=== PATIENT | female | born 2005 | race Caucasian/White ===

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

== ENCOUNTER 2023-04-15 15:16 | Emergency (ER) | payer OTHER, SELFPAY ==
[2023-04-15 15:27] VITALS: BP 156/94; PULSE 91; RESP 18; TEMP 36.6; O2SAT 97; BMI 29.7
[2023-04-15 15:31] VITALS: BP 141/62; PULSE 66; RESP 20; O2SAT 96
--- NOTE | 2023-04-15 15:34 | HMH.EDGENADL ---
Discharge Plan Disposition Patient Disposition: Home, Self-Care Condition: Fair Prescriptions Prescriptions: No Action ibuprofen [ibuprofen] 600 mg tablet 600 mg PO Q6HP PRN (Reason: Mild Pain) Qty: 30 0RF Referrals Follow up/Referrals: Radha Sampson DO [Staff Physician] - 3 days Ac Kenyon MD [Primary Care Provider] - See instructions Clinical Impressions Clinical Impression: Vaginal bleeding, Dysfunctional uterine bleeding Instructions Patient Instructions: DI for Vaginal Bleeding Discharge ED Provider: Faisal Sharma Adult HPI General Chief complaint: Vaginal Bleeding Stated complaint: stomach pain, cramps Time Seen by Provider: 04/15/23 15:34 Mode of Arrival: Ambulatory Source of Information: Patient Limitations: No Limitations Description of Symptoms (Recalled from ER Triage Doc. by RN): Patient reports heavy bleeding with clots and cramping that started around 1300 today. History of Present Illness HPI narrative: The patient presents the emergency department with heavy vaginal bleeding today. Patient reports that she is having profuse bleeding MD complaint: Vaginal bleeding Severity: moderate Quality: burning Relieving factors: none Exacerbating factors: none Related Data Previous Rx's Medication Instructions Recorded ibuprofen 600 mg tablet 600 mg PO Q6HP PRN Mild Pain #30 06/13/22 tabs Allergies Allergy/AdvReac Type Severity Reaction Status Date / Time Penicillins [PENICILLINS] Allergy Unknown Verified 06/13/22 13:42 [facility] Disclaimer: The information contained in this section may have been updated after the patient was seen, as this information can be updated by other users. Social History Smoking Status: Never smoker alcohol intake: never current occupational status: student Travel in the last 8 weeks: None housing: house ROS Obtained: Yes Systems reviewed as appropriate & no additional complaints except as documented Genitourinary Female Genitourinary: Reports abnormal vaginal bleeding and Reports pelvic pain Physical Exam General General appearance: alert and in no apparent distress Eye Eye exam: Present normal appearance and EOMI ENT ENT exam: Present normal exam Respiratory Respiratory exam: Present normal lung sounds bilaterally Cardiovascular Cardiovascular exam: Present regular rate and normal rhythm Abdominal Exam Abdominal exam: Present soft Abdominal tenderness: Present suprapubic Extremities Exam Extremities exam: Present normal inspection and full ROM Neurological Exam Neurological exam: Present alert, CN II-XII intact and motor sensory deficit Psychiatric Psychiatric exam: Present normal affect and normal mood Skin Skin exam: Present warm, dry and intact Medical Decision Making Bam Inquiry Pt receiving controlled substance: No Vital Signs: 04/15/23 15:27 04/15/23 15:31 04/15/23 16:52 Temperature 97.8 F Temperature Source Oral Pulse Rate 66 58 L Pulse Rate [Right Brachial] 91 H Respiratory Rate 18 20 18 Blood Pressure 141/62 H 111/66 Blood Pressure [Right Arm] 156/94 H Blood Pressure Mean 88 77 Blood Pressure Mean [Right Arm] 114 Blood Pressure Source Blood Pressure Source [Right Arm] Automatic Cuff Blood Pressure Position Blood Pressure Position [Right Arm] Sitting 02 Sat by Pulse Oximetry 97 96 97 Oxygen Delivery Method Room Air 04/15/23 17:14 Temperature 97.8 F Temperature Source Pulse Rate 63 Pulse Rate [Right Brachial] Respiratory Rate 18 Blood Pressure 112/60 Blood Pressure [Right Arm] Blood Pressure Mean Blood Pressure Mean [Right Arm] Blood Pressure Source Automatic Cuff Blood Pressure Source [Right Arm] Blood Pressure Position Sitting Blood Pressure Position [Right Arm] 02 Sat by Pulse Oximetry Oxygen Delivery Method Room Air Lab Data Lab results reviewed: Yes I reviewed the patient's lab r
[2023-04-15 16:15] LABS: Basophils % 0.3 % (0.1-2.0); Eosinophils # 0.1 K/mm3 (0.0-0.4); Eosinophils % 1.1 % (0.1-12.0); Hematocrit 39.7 % (37.0-47.0); Hemoglobin 12.8 g/dL (12.2-16.2); Lymphocytes # 1.4 K/mm3 (0.7-4.5); Lymphocytes % 13.4 % (10-50); Mean Corpuscular HGB Conc 32.1 g/dL (31.8-35.4); Mean Platelet Volume 9.4 fl (7.4-10.4); Monocytes # 0.4 K/mm3 (0.1-1.0); Monocytes % 3.7 % (1.7-9.3); Neutrophils # 8.3 K/mm3 (1.8-7.8); Neutrophils % 81.5 % (37.0-80.0); Platelet Count 224 K/mm3 (142-424); Red Blood Count 4.56 M/mm3 (4.20-5.40); Red Cell Distribution Width 13.1 % (11.5-17.5); White Blood Count 10.2 K/mm3 (4.5-13.0)
[2023-04-15 16:24] LABS: Anion Gap 9.9 mEq/L (5-15); Blood Urea Nitrogen 10 mg/dl (7-17); Calcium 8.7 mg/dl (8.4-10.2); Carbon Dioxide 27 mmol/L (22.0-30.0); Chloride 107 mmol/L (98-107); Creatinine Clearance Estimated 156 mL/min (50-200); Estimated Glomerular Filt Rate 108 ml/min (>60); GFR (African American) 130 ML/MIN (>60); Glucose 93 mg/dl (74-100); Potassium 3.9 mmoL/L (3.5-5.1); Sodium 140 mmol/L (136-145)
[2023-04-15 16:29] LABS: HCG Qualitative, Serum Negative (Negative)
[2023-04-15 16:52] VITALS: BP 111/66; PULSE 58; RESP 18; O2SAT 97
--- NOTE | 2023-04-15 17:05 | PC.NURSE ---
CHECKED ON PT SHE RECIVED A WATER, MOM AT BS
[2023-04-15 17:14] VITALS: BP 112/60; PULSE 63; RESP 18; TEMP 36.6; O2SAT 100
== END 2023-04-15 17:17 | disposition home or self-care (01) ==
PROVIDERS: Emergency Provider Emergency Medicine; PCP Family Medicine
DX: N93.9 Abnormal uterine and vaginal bleeding, unspecified (principal); R10.9 Unspecified abdominal pain
CPT/HCPCS: 80048; 84703; 85025; 96374; 96375; 99284; J2405

== ENCOUNTER 2023-06-30 13:12 | Emergency (ER) | payer OTHER, SELFPAY ==
[2023-06-30 13:13] VITALS: BP 105/62; PULSE 65; RESP 16; TEMP 36.9; O2SAT 100; BMI 29.2
--- NOTE | 2023-06-30 13:55 | PC.NURSE ---
Dr. Garcia at [facility] for pt eval
[2023-06-30 14:00] VITALS: BP 135/89; PULSE 99; RESP 20; O2SAT 100
--- NOTE | 2023-06-30 14:01 | HMH.EDGENADL ---
Discharge Plan Disposition Patient Disposition: Home, Self-Care Prescriptions Prescriptions: No Action ibuprofen [ibuprofen] 600 mg tablet 600 mg PO Q6HP PRN (Reason: Mild Pain) Qty: 30 0RF Referrals Follow up/Referrals: Sangita Villa APRN [Primary Care Provider] - See instructions Clinical Impressions Clinical Impression: Contusion of head Qualifiers: Encounter type: initial encounter Stand Alone Forms Stand Alone Forms: Work/School Release Instructions Patient Instructions: DI for Closed Head Injury, DI for Headache Discharge ED Provider: Prashant Garcia Adult HPI General Chief complaint: PAIN Stated complaint: AO 1200, hit head Time Seen by Provider: 06/30/23 13:55 Mode of Arrival: Ambulatory Source of Information: Patient Limitations: No Limitations Description of Symptoms (Recalled from ER Triage Doc. by RN): pt presents to ED stating approx an hour or two ago she was at work when she stood up and hit her head on a wood shelf. pt denies LOC. pt states since hitting her head she has been light headed, dizzy, and nauseated. pt alert and oriented at this time . History of Present Illness HPI narrative: The patient presents to the emergency department complaining of posterior head pain after having struck her head against a shelf at work. This happened approximately 1 or 2 hours ago. The patient was stooping down and got up and struck her head against a shelf. She denies having lost consciousness. She does admit to having been confused shortly afterwards. She denies any nausea vomiting or diarrhea. She denies any visual disturbances. Related Data Previous Rx's Medication Instructions Recorded ibuprofen 600 mg tablet 600 mg PO Q6HP PRN Mild Pain #30 06/13/22 tabs Allergies Allergy/AdvReac Type Severity Reaction Status Date / Time Penicillins [PENICILLINS] Allergy Unknown Verified 06/13/22 13:42 [facility] Disclaimer: The information contained in this section may have been updated after the patient was seen, as this information can be updated by other users. Social History Smoking Status: Never smoker alcohol intake: never current occupational status: student Travel in the last 8 weeks: None housing: house ROS Obtained: Yes All systems reviewed & no additional complaints except as documented Physical Exam General General appearance: alert and in no apparent distress Head Head exam: other (Tender posterior scalp. No deformity. No abrasions. No laceration. No ecchymosis.) Eye Eye exam: Present normal appearance, PERRL and EOMI ENT ENT exam: Present normal exam Neck Neck exam: Present normal inspection and full ROM; Absent tenderness or meningismus Chest Chest inspection: Present normal inspection and symmetric chest wall rise; Absent tenderness Respiratory Respiratory exam: Present normal lung sounds bilaterally; Absent respiratory distress or accessory muscle use Cardiovascular Cardiovascular exam: Present regular rate, normal rhythm and normal heart sounds Abdominal Exam Abdominal exam: Present soft and normal bowel sounds; Absent distention, tenderness, heel tap sign, Westbrook's sign, Rovsing's sign, tenderness at McBurney's Point or mass Extremities Exam Extremities exam: Present normal inspection and full ROM Back Exam Back exam: Present normal inspection; Absent CVA tenderness (R) or CVA tenderness (L) Neurological Exam Neurological exam: Present alert and oriented X3 Psychiatric Psychiatric exam: Present normal affect and normal mood Skin Skin exam: Present warm, dry, intact and normal color Medical Decision Making Bam Inquiry Pt receiving controlled substance: No Vital Signs: 06/30/23 13:13 06/30/23 14:00 06/30/23 14:30 Temperature 98.4 F Temperature Source Oral Pulse Rate 99 H 65 Pulse Rate [Right Radial] 65 Respiratory Rate 16 20 20 Blood Pressure 135/89 119/73 Blood Pre
--- NOTE | 2023-06-30 14:04 | PC.NURSE ---
Upon rounding on pt she was upset and crying and advised My ears are ringing and the light and noise is bothering me. RN notified.
[2023-06-30 14:30] VITALS: BP 119/73; PULSE 65; RESP 20; O2SAT 100
[2023-06-30 15:05] VITALS: BP 119/69; PULSE 63; RESP 17; TEMP 36.7; O2SAT 98
== END 2023-06-30 15:05 | disposition home or self-care (01) ==
PROVIDERS: Emergency Provider Emergency Medicine; PCP Nurse Practitioner Family
DX: S00.93XA Contusion of unspecified part of head, initial encounter (principal); W22.8XXA Striking against or struck by other objects, initial encounter
CPT/HCPCS: 96372; 99283

== ENCOUNTER 2023-10-17 23:38 | Emergency (ER) | payer OTHER, SELFPAY ==
[2023-10-17 23:46] VITALS: BP 156/101; PULSE 109; RESP 15; TEMP 36.6; O2SAT 99; BMI 30.8
--- NOTE | 2023-10-18 00:28 | ED_ITS ---
Discharge Plan Disposition Patient Disposition: Home, Self-Care Prescriptions Prescriptions: No Action ibuprofen [ibuprofen] 600 mg tablet 600 mg PO Q6HP PRN (Reason: Mild Pain) Qty: 30 0RF Referrals Follow up/Referrals: Sangita Villa APRN [Primary Care Provider] - See instructions Activity Restrictions/Add. Instructions Additional Instructions/Restrictions: Please use erythromycin ointment as prescribed. Take Tylenol and ibuprofen as needed for pain. Please return to ER or follow-up with optometry/ophthalmology if symptoms worsen or do not improve. Clinical Impressions Clinical Impression: Irritation of right eye, Foreign body sensation, right eye Discharge ED Provider: Buddy Davis General Adult HPI General Chief complaint: Eye Problems Stated complaint: FB in right eye Time Seen by Provider: 10/17/23 23:57 Mode of Arrival: Family Vehicle Source of Information: Patient Limitations: No Limitations Description of Symptoms (Recalled from ER Triage Doc. by RN): 18 YO FEMALE PRESENTS FOLLOWING ENTRY OF FB INTO RIGHT EYE. PATIENT REPORTS SHE WAS PULLING HER BLANKET UP AROUND HER AND 'SOMETHING' FLUNG INTO HER EYE, NOW FEELS LIKE IT'S IN BEHIND HER EYE, AND SHE HAS DECREASED VISUAL ACUITY A RESULT. PATIENT ELABORATES THAT SHE NORMALLY WEARS EYEGLASSES FOR READING,BUT DIDN'T HAVE THEM ON AT THE TIME. History of Present Illness HPI narrative: 18-year-old female presents with right eye pain. She reports that she was laying down and she moved her blanket when she felt something large go into her eye. She is not sure what it was but she is sure that something went into her eye. Reports sharp pain since that time. She reports blurry vision bilaterally but worse in the affected eye. She normally wears glasses Related Data Previous Rx's Medication Instructions Recorded ibuprofen 600 mg tablet 600 mg PO Q6HP PRN Mild Pain #30 06/13/22 tabs Allergies Allergy/AdvReac Type Severity Reaction Status Date / Time Penicillins [PENICILLINS] Allergy Unknown Verified 06/13/22 13:42 [facility] Disclaimer: The information contained in this section may have been updated after the patient was seen, as this information can be updated by other users. Social History Smoking Status: Unknown if ever smoked alcohol intake: never current occupational status: student Travel in the last 8 weeks: None housing: house ROS Obtained: Yes All systems reviewed & no additional complaints except as documented Physical Exam General General appearance: alert and anxious Head Head exam: atraumatic and normocephalic Eye Eye exam: Present PERRL, EOMI and other (Mild right-sided conjunctival injection. Patient reports blurry vision bilaterally, worse on the right side. No foreign body noted.) ENT ENT exam: Present normal oropharynx and normal external ear exam Neck Neck exam: Present normal inspection and full ROM Chest Chest inspection: Present normal inspection and symmetric chest wall rise; Absent tenderness Respiratory Respiratory exam: Present normal lung sounds bilaterally; Absent respiratory distress Cardiovascular Cardiovascular exam: Present regular rate and normal rhythm Abdominal Exam Abdominal exam: Present soft; Absent distention, tenderness or guarding Extremities Exam Extremities exam: Present normal inspection; Absent edema or joint swelling Back Exam Back exam: Present normal inspection; Absent tenderness Neurological Exam Neurological exam: Present alert and oriented X3; Absent motor sensory deficit Psychiatric Psychiatric exam: Present normal affect and normal mood Skin Skin exam: Present warm, dry and normal color Lymphatic Lymphatic Findings: no adenopathy Medical Decision Making Medical Records Medical records reviewed: Yes I reviewed the patient's medical records. Bam Inquiry Pt receiving controlled substance: No Bam was queried for this patient: No Vital Signs: 10/17/23 23:46 10/18/23 00:31 Temperature 97.8 F 98.0 F Temperature Source Oral Oral Pulse Rate 67 Pulse Rate [Right Brachial] 109 H Respiratory Rate 15 14 Blood Pressure 131/85 Blood Pressure [Right Arm] 156/101 H Blood Pressure Mean [Right Arm] 119 Blood Pressure Source Automatic Cuff Blood Pressure Source [Right Arm] Automatic Cuff Blood Pressure Position Sitting Blood Pressure Position [Right Arm] Sitting 02 Sat by Pulse Oximetry 99 Oxygen Delivery Method Room Air Room Air Lab Data Lab results reviewed: Yes I reviewed the patient's lab results. Orders (Tests/Meds): ED MEDICATIONS Discontinued Medications Generic Name Dose Route Start Last Admin Trade Name Freq PRN Reason Stop Dose Admin Erythromycin 1 gm 10/18/23 00:29 10/18/23 00:32 Erythromycin Base 1 Gm Oint...G. OP 10/18/23 00:30 1 gm ONCE ONE Administration Eye Irrigation Solution 120 ml 10/18/23 00:40 10/18/23 00:41 Eye Wash Irrigation Soln 118ml Bottle OP 10/18/23 00:41 120 ml ONCE ONE Administration Fluorescein Sodium 1 mg 10/18/23 00:29 10/18/23 00:32 Fluorescein Sodium 1mg Strip OP 10/18/23 00:30 1 mg ONCE ONE Administration Tetracaine HCl 1 ml 10/18/23 00:29 10/18/23 00:32 Tetracaine 0.5% Opth Angi 15ml OP 10/18/23 00:30 1 ml ONCE ONE Administration Medical Decision Narrative: 18-year-old female presents with sudden onset right eye pain and blurry vision after she moved her blanket around and felt something get in her eye. History was obtained via conversation with patient, family. They irrigated the eye at home but the pain persisted so they presented to the ER. Differential includes but is not limited to intraocular foreign body/ruptured globe, corneal abrasion, extraocular foreign body, glaucoma, atypical migraine, scleritis, uveitis. Eye exam: Pressures 14 bilaterally. Mild right eye conjunctival injection. No external foreign body noted. Fluorescein staining showed no corneal abrasion, no Donita sign, no foreign body. Tetracaine was given without significant change in symptoms. The eyelids were lifted and the eye was copiously irrigated twice. After the second irrigation symptoms seem to improve. She reports persistent decreased vision in the right side. Presentation is most consistent with a brief extraocular eye foreign body that was removed with irrigation. No evidence of intraocular trauma, no evidence of corneal abrasion or other significant pathology. History is not consistent with central pathology. I had extensive discussion with patient regarding her symptoms. I encouraged her to return to the ED if symptoms do not improve or if they worsen. Recommended follow-up with eye doctor. Patient was given erythromycin ointment at discharge. Procedures Risk/Benefits of Procedure(s) Were Explained: Yes Critical Care Critical Care Time Critical Care Time: No
[2023-10-18 00:31] VITALS: BP 131/85; PULSE 67; RESP 14; TEMP 36.7; O2SAT 100
[2023-10-18] MEDS: FLUORESCEIN SODIUM 1MG STRIP 1 MG OP (00:32)
[2023-10-18] MEDS: TETRACAINE 0.5% OPTH SOL 15ML OP (00:32)
[2023-10-18] MEDS: ERYTHROMYCIN BASE 1 GM OINT...G. OP (00:32)
[2023-10-18] MEDS: EYE WASH IRRIGATION SOLN 118ML BOTTLE 120 ML OP (00:41)
== END 2023-10-18 00:33 | disposition home or self-care (01) ==
PROVIDERS: Emergency Provider Emergency Medicine; PCP Nurse Practitioner Family
DX: H57.11 Ocular pain, right eye (principal)
CPT/HCPCS: 99283

== ENCOUNTER 2023-12-06 05:30 | Emergency (ER) | payer OTHER, SELFPAY ==
[2023-12-06 05:43] VITALS: BP 132/78; PULSE 92; RESP 22; TEMP 36.8; O2SAT 100; BMI 30.1
--- NOTE | 2023-12-06 05:54 | ED_ITS ---
Discharge Plan Disposition Patient Disposition: Home, Self-Care Prescriptions Prescriptions: New dicyclomine 10 mg capsule 20 mg PO QID PRN (Reason: abdominal pain) Qty: 32 0RF ondansetron 4 mg tablet,disintegrating 4 mg PO Q8H PRN (Reason: nausea and vomiting) 4 Days Qty: 12 0RF No Action ibuprofen [ibuprofen] 600 mg tablet 600 mg PO Q6HP PRN (Reason: Mild Pain) Qty: 30 0RF Referrals Follow up/Referrals: Sangita Villa APRN [Primary Care Provider] - See instructions Activity Restrictions/Add. Instructions Additional Instructions/Restrictions: At this time it was felt you are safe to be discharged home. If new or worsening symptoms please do not hesitate to return the emergency department. If symptoms persist please follow-up with your family doctor as you are able. Please take your medications as prescribed. Clinical Impressions Clinical Impression: Abdominal pain, Abdominal lymphadenopathy Instructions Patient Instructions: DI for Acute Abdominal Pain Discharge ED Provider: Srinivas Erazo General Adult HPI <Kal Disla MD - Last Filed: 12/06/23 06:47> General Chief complaint: Abdominal Pain Stated complaint: severe abdominal pain, nausea Time Seen by Provider: 12/06/23 05:47 Mode of Arrival: Ambulatory Source of Information: Patient Limitations: No Limitations Description of Symptoms (Recalled from ER Triage Doc. by RN): Pt to ED with CO upper abd pain that wraps around abd and back. Pt reports pain started at 0400 this morning. Pt states she felt like she possibly slept wrong. pt then vomited @0500, and abd pain worsened, prompting her to come to ED for evaluation. Pt denies hx of similar episodes, past abd surgeries, urinary sx, fever, diarrhea. Last BM was last night. Pt states she ate [place] around 3pm yesterday, and didn't have any abd pain or sx untill this morning. Pt is sexually active, on Nexplanon. Abdomen is soft, and tender to palpation. History of Present Illness HPI narrative: 18-year-old female without relevant medical history currently on implantable Nexplanon for control presenting with abdominal pain. She states she woke up today, around 4 AM prior to work. Patient states she started having epigastric pain that radiated across her upper abdomen to the left and the right . Did not radiate to her back. She had 1 episode of nonbloody, nonbilious vomiting that consisted of the food she ate just the night prior. No fevers or chills, lower abdominal pain, urinary symptoms, flank pain, diarrhea, constipation, recent travel, recent medication changes, or any other concerns. Related Data Previous Rx's Medication Instructions Recorded ibuprofen 600 mg tablet 600 mg PO Q6HP PRN Mild Pain #30 06/13/22 tabs dicyclomine 10 mg capsule 20 mg PO QID PRN abdominal pain 12/06/23 #32 caps ondansetron 4 mg disintegrating 4 mg PO Q8H PRN nausea and 12/06/23 tablet vomiting 4 days #12 tabs Allergies Allergy/AdvReac Type Severity Reaction Status Date / Time Penicillins [PENICILLINS] Allergy Unknown Verified 06/13/22 13:42 PFSH <Kal Disla MD - Last Filed: 12/06/23 06:47> PFS Disclaimer: The information contained in this section may have been updated after the patient was seen, as this information can be updated by other users. Social History Smoking Status: Current every day smoker alcohol intake: never current occupational status: student Travel in the last 8 weeks: None housing: house <Kal Disla MD - Last Filed: 12/06/23 06:47> ROS Obtained: Yes All systems reviewed & no additional complaints except as documented Physical Exam <Kal Disla MD - Last Filed: 12/06/23 06:47> General General appearance: alert and in no apparent distress Eye Eye exam: Present normal appearance, PERRL and conjunctival redness ENT ENT exam: Present mucous membranes moist Chest Chest inspection: Present normal inspection and symmetric chest wall rise Respiratory Respiratory exam: Absent respiratory distress, wheezes, stridor, accessory muscle use or prolonged expiratory phase Cardiovascular Cardiovascular exam: Present regular rate and normal rhythm Abdominal Exam Abdominal exam: Present soft and tenderness; Absent distention, guarding, rebound, rigidity, Westbrook's sign, Rovsing's sign or tenderness at McBurney's Point Abdominal tenderness: Present epigastrium and mild Back Exam Back exam: Present CVA tenderness (R); Absent CVA tenderness (L) Neurological Exam Neurological exam: Present alert, oriented X3, CN II-XII intact and normal gait Skin Skin exam: Present warm and dry; Absent rash Medical Decision Making <Kal Disla MD - Last Filed: 12/06/23 06:47> Medical Records Medical records reviewed: Yes I reviewed the patient's medical records. Bam Inquiry Pt receiving controlled substance: No Bam was queried for this patient: No Vital Signs: 12/06/23 05:43 12/06/23 06:31 12/06/23 07:01 Temperature 98.3 F Temperature Source Oral Pulse Rate 65 67 Pulse Rate [Right Radial] 92 H Respiratory Rate 22 Blood Pressure 127/73 111/62 Blood Pressure [Right Arm] 132/78 Blood Pressure Mean Blood Pressure Mean [Right Arm] 96 Blood Pressure Source [Right Arm] Automatic Cuff Blood Pressure Position [Right Arm] Supine 02 Sat by Pulse Oximetry 100 100 100 Oxygen Delivery Method Room Air 12/06/23 07:38 12/06/23 08:00 Temperature Temperature Source Pulse Rate 84 97 H Pulse Rate [Right Radial] Respiratory Rate 20 20 Blood Pressure 126/76 138/120 H Blood Pressure [Right Arm] Blood Pressure Mean 81 125 Blood Pressure Mean [Right Arm] Blood Pressure Source [Right Arm] Blood Pressure Position [Right Arm] 02 Sat by Pulse Oximetry 100 100 Oxygen Delivery Method Lab Data Lab Results 12/06/23 06:00: WBC 6.3, RBC 4.02 L, Hgb 12.3, Hct 37.4, MCV 93.1, MCH 30.7, MCHC 33.0, RDW 13.4, Plt Count 240, MPV 8.4, Neut % (Auto) 62.4, Lymph % (Auto) 29.1, Churchill % (Auto) 5.3, Eos % (Auto) 2.8, Baso % (Auto) 0.4, Neut # (Auto) 3.9, Lymph # (Auto) 1.8, Churchill # (Auto) 0.3, Eos # (Auto) 0.2, Baso # (Auto) 0.0, Sodium 138, Potassium 3.9, Chloride 109 H, Carbon Dioxide 29, Anion Gap 3.9 L, BUN 10, Creatinine 0.80, Estimated Creat Clear 137, Estimated GFR 91, Est GFR ( Amer) 111, Glucose 108 H, Lactate 0.8, Calcium 8.7, Total Bilirubin 0.4, AST 25, ALT 17, Alkaline Phosphatase 50, Total Protein 6.6, Albumin 4.0, Globulin 2.6, Albumin/Globulin Ratio 1.5, Lipase 40, HCG, Quant < 2 12/06/23 07:00: Urine Color Yellow, Urine Appearance Clear, Urine pH 7.0, Ur Specific [place] 1.010, Urine Protein Negative, Urine Glucose (UA) Negative, Urine Ketones Negative, Urine Blood Negative, Urine Nitrate Negative, Urine Bilirubin Negative, Urine Urobilinogen 0.2, Ur Leukocyte Esterase Negative, Urine RBC None, Urine WBC Occasional, Ur Squamous Epith Cells Occasional, Urine Bacteria Trace 12/06/23 07:05: SARS-CoV-2 (PCR) Not detected, Influenza A Untype (PCR) Not detected, Influenza Type B (PCR) Not detected 12/06/23 06:00 12/06/23 06:00 Orders (Tests/Meds): ED MEDICATIONS Generic Name Dose Route Start Last Admin Trade Name Freq PRN Reason Stop Dose Admin Sodium Chloride 8 ml 12/06/23 05:54 12/06/23 06:07 Sodium Chloride 0.9% 10ml Vial IV 01/05/24 05:53 8 ml NEEDED PRN Administration dilute pepcid Sodium Chloride 10 ml 12/06/23 07:40 Sodium Chloride 0.9% 10ml Syr (Rad Only) IV 01/05/24 07:39 NEEDED PRN Maintain IV Site Discontinued Medications Generic Name Dose Route Start Last Admin Trade Name Freq PRN Reason Stop Dose Admin Acetaminophen 1,000 mg 12/06/23 05:48 12/06/23 06:07 Acetaminophen 1,000mg/100ml Vial IV 12/06/23 05:49 1,000 mg ONCE ONE Administration Belladonna Alkaloids 60 ml 12/06/23 07:05 12/06/23 07:12 Belladonna Alkaloids 60 Ml Ml PO 12/06/23 07:06 60 ml ONCE ONE Administration Famotidine 20 mg 12/06/23 05:54 12/06/23 06:07 Famotidine 20mg/2ml Vial IV 12/06/23 05:55 20 mg ONCE ONE Administration Lactated Ringer's 1,000 mls @ 999 mls/hr 12/06/23 05:48 12/06/23 06:07 Lactated Ringer's 1000 Ml Bag IV 12/06/23 06:48 999 mls/hr .Q1H1M ONE Administration Iopamidol 75 ml 12/06/23 07:40 12/06/23 07:41 Iopamidol-370 (76%);100ml Bottle IV 12/06/23 07:41 75 ml ONCE ONE Administration Ondansetron HCl 4 mg 12/06/23 05:48 12/06/23 06:07 Ondansetron 4mg/2ml Vial IV 12/06/23 05:49 4 mg ONCE ONE Administration ORDERS Category Date Time Status CT abdomen pelvis w con Stat Cat Scan 12/06/23 07:05 Taken POCUS Point of Care (ER Only) Stat Exams 12/06/23 06:09 Completed CBC w/Auto Diff [Complete Blood Count Auto Diff] Stat Lab 12/06/23 06:00 Completed CMP [Comprehensive Metabolic Panel] Stat Lab 12/06/23 06:00 Completed HCG,Quantitative Stat Lab 12/06/23 06:00 Completed Lactic Acid Stat Lab 12/06/23 06:00 Completed Lipase Stat Lab 12/06/23 06:00 Completed Rapid PCR Covid and Flu A/B Stat Lab 12/06/23 07:05 Completed UA [Urinalysis and Microscopic] Stat Lab 12/06/23 07:00 Completed Medical Decision Narrative: 18-year-old female without relevant medical history currently on implantable Nexplanon for control presenting with abdominal pain. She states she woke up today, around 4 AM prior to work. Patient states she started having epigastric pain that radiated across her upper abdomen to the left and the right. Did not radiate to her back. She had 1 episode of nonbloody, nonbilious vomiting that consisted of the food she ate just the night prior. No fevers or chills, lower abdominal pain, urinary symptoms, flank pain, diarrhea, constipation, recent travel, recent medication changes, or any other concerns. History was obtained via conversation with patient. On arrival, patient hemodynamically stable, alert, oriented x4, appropriate, GCS 15, moving all extremities spontaneously, pupils equal and reactive to light. Full physical exam performed and significant for well-appearing woman in no acute distress. No acute respiratory distress, nontachycardic, normotensive. Abdomen is soft, nondistended, but tender in epigastrium without signs of peritonitis. No focal right upper quadrant tenderness, Westbrook sign, tenderness to McBurney's point, or overlying skin changes. Patient has some right flank tenderness with no left flank tenderness. Differential includes PUD, gastritis, enteritis, gastroenteritis, pancreatitis, SBO, colitis, diverticulitis, nephrolithiasis, UTI, , cholecystitis, choledocholithiasis, appendicitis, hepatitis, torsion, aortic pathology, mesenteric ischemia among others. Patient was given fluid bolus, acetaminophen, Pepcid, Zofran for symptomatic management and correction of underlying abnormalities. Workup independently interpreted and significant for nonactionable chemistry. Negative hCG and lipase. Right upper quadrant ultrasound demonstrated normal fin dings. Patient given Toradol after negative test. Prior to urine and rest of labs, care held off to oncoming physician. <Srinivas Erazo MD - Last Filed: 12/06/23 09:06> Vital Signs: 12/06/23 05:43 12/06/23 06:31 12/06/23 07:01 Temperature 98.3 F Temperature Source Oral Pulse Rate 65 67 Pulse Rate [Right Radial] 92 H Respiratory Rate 22 Blood Pressure 127/73 111/62 Blood Pressure [Right Arm] 132/78 Blood Pressure Mean Blood Pressure Mean [Right Arm] 96 Blood Pressure Source [Right Arm] Automatic Cuff Blood Pressure Position [Right Arm] Supine 02 Sat by Pulse Oximetry 100 100 100 Oxygen Delivery Method Room Air 12/06/23 07:38 12/06/23 08:00 Temperature Temperature Source Pulse Rate 84 97 H Pulse Rate [Right Radial] Respiratory Rate 20 20 Blood Pressure 126/76 138/120 H Blood Pressure [Right Arm] Blood Pressure Mean 81 125 Blood Pressure Mean [Right Arm] Blood Pressure Source [Right Arm] Blood Pressure Position [Right Arm] 02 Sat by Pulse Oximetry 100 100 Oxygen Delivery Method Lab Data Lab Results 12/06/23 06:00: WBC 6.3, RBC 4.02 L, Hgb 12.3, Hct 37.4, MCV 93.1, MCH 30.7, MCHC 33.0, RDW 13.4, Plt Count 240, MPV 8.4, Neut % (Auto) 62.4, Lymph % (Auto) 29.1, Churchill % (Auto) 5.3, Eos % (Auto) 2.8, Baso % (Auto) 0.4, Neut # (Auto) 3.9, Lymph # (Auto) 1.8, Churchill # (Auto) 0.3, Eos # (Auto) 0.2, Baso # (Auto) 0.0, Sodium 138, Potassium 3.9, Chloride 109 H, Carbon Dioxide 29, Anion Gap 3.9 L, BUN 10, Creatinine 0.80, Estimated Creat Clear 137, Estimated GFR 91, Est GFR ( Amer) 111, Glucose 108 H, Lactate 0.8, Calcium 8.7, Total Bilirubin 0.4, AST 25, ALT 17, Alkaline Phosphatase 50, Total Protein 6.6, Albumin 4.0, Globulin 2.6, Albumin/Globulin Ratio 1.5, Lipase 40, HCG, Quant < 2 12/06/23 07:00: Urine Color Yellow, Urine Appearance Clear, Urine pH 7.0, Ur Specific [place] 1.010, Urine Protein Negative, Urine Glucose (UA) Negative, Urine Ketones Negative, Urine Blood Negative, Urine Nitrate Negative, Urine Bilirubin Negative, Urine Urobilinogen 0.2, Ur Leukocyte Esterase Negative, Urine RBC None, Urine WBC Occasional, Ur Squamous Epith Cells Occasional, Urine Bacteria Trace 12/06/23 07:05: SARS-CoV-2 (PCR) Not detected, Influenza A Untype (PCR) Not detected, Influenza Type B (PCR) Not detected Orders (Tests/Meds): ED MEDICATIONS Generic Name Dose Route Start Last Admin Trade Name Freq PRN Reason Stop Dose Admin Sodium Chloride 8 ml 12/06/23 05:54 12/06/23 06:07 Sodium Chloride 0.9% 10ml Vial IV 01/05/24 05:53 8 ml NEEDED PRN Administration dilute pepcid Sodium Chloride 10 ml 12/06/23 07:40 Sodium Chloride 0.9% 10ml Syr (Rad Only) IV 01/05/24 07:39 NEEDED PRN Maintain IV Site Discontinued Medications Generic Name Dose Route Start Last Admin Trade Name Freq PRN Reason Stop Dose Admin Acetaminophen 1,000 mg 12/06/23 05:48 12/06/23 06:07 Acetaminophen 1,000mg/100ml Vial IV 12/06/23 05:49 1,000 mg ONCE ONE Administration Belladonna Alkaloids 60 ml 12/06/23 07:05 12/06/23 07:12 Belladonna Alkaloids 60 Ml Ml PO 12/06/23 07:06 60 ml ONCE ONE Administration Famotidine 20 mg 12/06/23 05:54 12/06/23 06:07 Famotidine 20mg/2ml Vial IV 12/06/23 05:55 20 mg ONCE ONE Administration Lactated Ringer's 1,000 mls @ 999 mls/hr 12/06/23 05:48 12/06/23 06:07 Lactated Ringer's 1000 Ml Bag IV 12/06/23 06:48 999 mls/hr .Q1H1M ONE Administration Iopamidol 75 ml 12/06/23 07:40 12/06/23 07:41 Iopamidol-370 (76%);100ml Bottle IV 12/06/23 07:41 75 ml ONCE ONE Administration Ondansetron HCl 4 mg 12/06/23 05:48 12/06/23 06:07 Ondansetron 4mg/2ml Vial IV 12/06/23 05:49 4 mg ONCE ONE Administration ORDERS Category Date Time Status CT abdomen pelvis w con Stat Cat Scan 12/06/23 07:05 Taken POCUS Point of Care (ER Only) Stat Exams 12/06/23 06:09 Completed CBC w/Auto Diff [Complete Blood Count Auto Diff] Stat Lab 12/06/23 06:00 Completed CMP [Comprehensive Metabolic Panel] Stat Lab 12/06/23 06:00 Completed HCG,Quantitative Stat Lab 12/06/23 06:00 Completed Lactic Acid Stat Lab 12/06/23 06:00 Completed Lipase Stat Lab 12/06/23 06:00 Completed Rapid PCR Covid and Flu A/B Stat Lab 12/06/23 07:05 Completed UA [Urinalysis and Microscopic] Stat Lab 12/06/23 07:00 Completed Medical Decision Narrative: 18-year-old female without relevant medical history currently on implantable Nexplanon for control presenting with abdominal pain. She states she woke up today, around 4 AM prior to work. Patient states she started having epigastric pain that radiated across her upper abdomen to the left and the right. Did not radiate to her back. She had 1 episode of nonbloody, nonbilious vomiting that consisted of the food she ate just the night prior. No fevers or chills, lower abdominal pain, urinary symptoms, flank pain, diarrhea, constipation, recent travel, recent medication changes, or any other concerns. History was obtained via conversation with patient. On arrival, patient hemodynamically stable, alert, oriented x4, appropriate, GCS 15, moving all extremities spontaneously, pupils equal and reactive to light. Full physical exam performed and significant for well-appearing woman in no acute distress. No acute respiratory distress, nontachycardic, normotensive. Abdomen is soft, nondistended, but tender in epigastrium without signs of pe ritonitis. No focal right upper quadrant tenderness, Westbrook sign, tenderness to McBurney's point, or overlying skin changes. Patient has some right flank tenderness with no left flank tenderness. Differential includes PUD, gastritis, enteritis, gastroenteritis, pancreatitis, SBO, colitis, diverticulitis, nephrolithiasis, UTI, , cholecystitis, choledocholithiasis, appendicitis, hepatitis, torsion, aortic pathology, mesenteric ischemia among others. Patient was given fluid bolus, acetaminophen, Pepcid, Zofran for symptomatic management and correction of underlying abnormalities. Workup independently interpreted and significant for nonactionable chemistry. Negative hCG and lipase. Right upper quadrant ultrasound demonstrated normal findings. Patient given Toradol after negative test. Prior to urine and rest of labs, care held off to oncoming physician. Srinivas Erazo: Upon assumption of care patient was hemodynamically stable. Hematologic labs are nonactionable. Urinalysis interpreted by me and not consistent with infection, patient is non, viral swab negative. CT imaging shows no significant abnormality in the upper abdomen or pelvis, small nonspecific retroperitoneal nodes that favor reactive etiology. Given this constellation of findings patient likely has a nonspecific viral syndrome however these findings were relayed to patient at bedside and should symptoms persist she will continue to follow-up outpatient. Procedures <Kal Disla MD - Last Filed: 12/06/23 06:47> Limited Ultrasound Indication:: Limited RUQ ultrasound Indication: Epigastric abdominal pain and vomiting Identified structures: -Gallbladder -Gallbladder wall -Common bile duct -Liver Findings: Sonographic Westbrook sign: Absent Gallstones: Absent Sludge: Absent Pericholecystic fluid: Absent Maximal GB wall thickness (mm) (normal is </= 3mm): Normal Common bile duct width (mm) (normal is </= 6mm): Normal Gallbladder width (cm) (normal is < 4cm): Normal Gallbladder length (cm) (normal is < 10cm): Normal Impression: Normal gallbladder without cholelithiasis, normal right upper quadrant ultrasound Images were saved to permanent archive The study was technically adequate CPT 06310-75 This study was performed by me, and I personally interpreted all images/videos. Based on my clinical judgement, these images were adequate and did not necessitate further imaging. Critical Care <Kal Disla MD - Last Filed: 12/06/23 06:47> Critical Care Time Critical Care Time: No
[2023-12-06] MEDS: ONDANSETRON 4MG/2ML VIAL 4 MG IV (06:07)
[2023-12-06] MEDS: SODIUM CHLORIDE 0.9% 10ML VIAL 8 ML IV (06:07)
[2023-12-06] MEDS: FAMOTIDINE 20MG/2ML VIAL 20 MG IV (06:07)
[2023-12-06] MEDS: LACTATED RINGERS 1000ML 1,000 ML 999 ML IV (06:07)
[2023-12-06] MEDS: ACETAMINOPHEN 1,000MG/100ML VIAL 1000 MG IV (06:07)
[2023-12-06 06:15] LABS: Lactic Acid 0.8 mmol/L (0.7-2.1)
[2023-12-06 06:21] LABS: Chloride 109 mmol/L (98-107); Potassium 3.9 mmoL/L (3.5-5.1); Sodium 138 mmol/L (136-145)
[2023-12-06 06:24] LABS: Alanine Aminotransferase 17 U/L (12-78); Alkaline Phosphatase 50 U/L (38-126); Anion Gap 3.9 mEq/L (5-15); Aspartate Amino Transferase 25 U/L (14-36); Bilirubin,Total 0.4 mg/dl (0.2-1.3); Blood Urea Nitrogen 10 mg/dl (7-17); Calcium 8.7 mg/dl (8.4-10.2); Carbon Dioxide 29 mmol/L (22.0-30.0); Creatinine Clearance Estimated 137 mL/min (50-200); Estimated Glomerular Filt Rate 91 ml/min (>60); GFR (African American) 111 ML/MIN (>60); Glucose 108 mg/dl (74-100); Lipase 40 U/L (23-300); Total Protein,Serum 6.6 g/dl (6.3-8.2)
[2023-12-06 06:25] LABS: Albumin/Globulin Ratio 1.5 (1.1-1.8); Globulin 2.6 g/dL (1.3-3.2)
[2023-12-06 06:31] VITALS: BP 127/73; PULSE 65; O2SAT 100
[2023-12-06 06:43] LABS: HCG,Quantitative < 2 mIU/ml (0-5.42)
[2023-12-06 06:50] LABS: Basophils % 0.4 % (0.1-2.0); Eosinophils # 0.2 K/mm3 (0.0-0.4); Eosinophils % 2.8 % (0.1-12.0); Hematocrit 37.4 % (37.0-47.0); Hemoglobin 12.3 g/dL (12.2-16.2); Lymphocytes # 1.8 K/mm3 (0.7-4.5); Lymphocytes % 29.1 % (10-50); Mean Corpuscular Hemoglobin 30.7 pg (27.0-31.2); Mean Corpuscular Volume 93.1 fl (81-99); Mean Platelet Volume 8.4 fl (7.4-10.4); Monocytes # 0.3 K/mm3 (0.1-1.0); Monocytes % 5.3 % (1.7-9.3); Neutrophils # 3.9 K/mm3 (1.8-7.8); Neutrophils % 62.4 % (37.0-80.0); Platelet Count 240 K/mm3 (142-424); Red Blood Count 4.02 M/mm3 (4.20-5.40); Red Cell Distribution Width 13.4 % (11.5-17.5); White Blood Count 6.3 K/mm3 (4.5-13.0)
[2023-12-06 07:01] VITALS: BP 111/62; PULSE 67; O2SAT 100
[2023-12-06 07:03] LABS: Microscopic, Urine URINE MICROSCOPIC (MICROSCOPIC)
--- NOTE | 2023-12-06 07:05 | CT_ITS ---
FINAL REPORT TECHNIQUE: Thin section axial images are obtained through the abdomen and pelvis after intravenous contrast. Reconstruction images were obtained from the axial data. Exam was performed using dose reduction techniques. CLINICAL HISTORY: significant b/l upper quad/epigastric tender COMPARISON: Prior report CT abdomen and pelvis from 07/28/2021. FINDINGS: LUNG BASES: Granulomatous disease is present in the lung bases. Heart size is normal. LIVER: Homogeneous. No focal lesion. GALLBLADDER/BILIARY SYSTEM: Gallbladder is present. No gallstones. No biliary dilatation. SPLEEN: Unremarkable. PANCREAS: Unremarkable. ADRENALS: Unremarkable. SYSTEM: No hydronephrosis, renal mass, or renal stone. Unremarkable urinary bladder. Pelvic organs are unremarkable for age. GI TRACT: No small bowel obstruction or dilatation. Normal appendix. No acute colon abnormality. LYMPH NODES/RETROPERITONEUM/MESENTERY: There are small retroperitoneal nodes present, favor reactive. No abdominal aortic aneurysm. OTHER: No ascites. Remaining soft tissues without acute abnormality. BONES: No acute osseous abnormality. IMPRESSION: Small nonspecific retroperitoneal nodes, favor reactive. No significant abnormality of the upper abdomen or pelvis. Reviewed, Interpreted and Dictated by Zully Farr MD Transcribed by May Mota Authenticated and [facility]
[2023-12-06 07:09] LABS: Coronavirus 19, PCR Not Detected (NotDetected); Influenza A, PCR Not Detected (NotDetected); Influenza B, PCR Not Detected (NotDetected)
[2023-12-06] MEDS: BELLADONNA ALKALOIDS 60 ML ML PO (07:12)
[2023-12-06 07:17] LABS: Appearance,Urine CLEAR (Clear); Bilirubin,Urine Negative (Negative); Blood, Urine Negative (Negative); Color,Urine YELLOW (Yellow); Glucose,Urine (UA) Negative (Negative); Ketones,Urine Negative (Negative); Leukocyte Esterase,Urine Negative (Negative); Nitrate,Urine Negative (Negative); Protein,Urine Negative (Negative); Urobilinogen,Urine 0.2 EU/dl (0.2)
[2023-12-06 07:38] VITALS: BP 126/76; PULSE 84; RESP 20; O2SAT 100
[2023-12-06] MEDS: IOPAMIDOL-370 (76%);100ML BOTTLE 75 ML IV (07:41)
[2023-12-06 08:00] VITALS: BP 138/120; PULSE 97; RESP 20; O2SAT 100
[2023-12-06 08:13] LABS: Bacteria,Urine Trace /lpf; Squamous Epithelial Cell,Urine Occasional #/hpf (0-5); WBC,Urine Occasional #/hpf (0-3)
--- NOTE | 2023-12-06 09:00 | PC.NURSE ---
DR WILSON AT BEDSIDE TO UPDATE PT
[2023-12-06 09:14] VITALS: BP 136/72; PULSE 90; RESP 20; TEMP 36.8; O2SAT 100
== END 2023-12-06 09:14 | disposition home or self-care (01) ==
PROVIDERS: Emergency Medicine; Emergency Provider Emergency Medicine; PCP Nurse Practitioner Family
DX: R10.13 Epigastric pain (principal); R11.2 Nausea with vomiting, unspecified; F17.200 Nicotine dependence, unspecified, uncomplicated
CPT/HCPCS: 74177; 80053; 81001; 83605; 83690; 84702; 85025; 87636; 96361; 96374; 96375; 99285; J0131; J2405; Q9967

== ENCOUNTER 2023-12-10 11:10 | Emergency (ER) | payer OTHER, SELFPAY ==
[2023-12-10 11:17] VITALS: BP 119/72; PULSE 94; RESP 20; TEMP 36.9; O2SAT 98
[2023-12-10 11:31] LABS: Microscopic, Urine URINE MICROSCOPIC (MICROSCOPIC)
[2023-12-10 11:32] LABS: Basophils % 0.6 % (0.1-2.0); Eosinophils # 0.2 K/mm3 (0.0-0.4); Eosinophils % 2.2 % (0.1-12.0); Hematocrit 39.7 % (37.0-47.0); Hemoglobin 12.5 g/dL (12.2-16.2); Lymphocytes # 2.2 K/mm3 (0.7-4.5); Lymphocytes % 29.3 % (10-50); Mean Corpuscular HGB Conc 31.4 g/dL (31.8-35.4); Mean Corpuscular Hemoglobin 29.2 pg (27.0-31.2); Mean Corpuscular Volume 92.9 fl (81-99); Mean Platelet Volume 9.1 fl (7.4-10.4); Monocytes # 0.4 K/mm3 (0.1-1.0); Neutrophils # 4.8 K/mm3 (1.8-7.8); Platelet Count 259 K/mm3 (142-424); Red Blood Count 4.27 M/mm3 (4.20-5.40); Red Cell Distribution Width 13.3 % (11.5-17.5); White Blood Count 7.6 K/mm3 (4.5-13.0)
[2023-12-10 11:34] LABS: Appearance,Urine CLEAR (Clear); Bilirubin,Urine Negative (Negative); Blood, Urine Negative (Negative); Color,Urine YELLOW (Yellow); Glucose,Urine (UA) Negative (Negative); Ketones,Urine Negative (Negative); Leukocyte Esterase,Urine Negative (Negative); Nitrate,Urine Negative (Negative); Protein,Urine Negative (Negative); Specific Gravity, Urine 1.015 (1.005-1.030); Urine Pregnancy, HCG Qual. Negative (Negative); Urobilinogen,Urine 0.2 EU/dl (0.2)
[2023-12-10 11:38] LABS: Alanine Aminotransferase 17 U/L (12-78); Albumin Level 4.6 g/dl (3.5-5.0); Albumin/Globulin Ratio 1.8 (1.1-1.8); Alkaline Phosphatase 54 U/L (38-126); Aspartate Amino Transferase 24 U/L (14-36); Bilirubin,Total 0.3 mg/dl (0.2-1.3); Blood Urea Nitrogen 10 mg/dl (7-17); Calcium 9.1 mg/dl (8.4-10.2); Carbon Dioxide 30 mmol/L (22.0-30.0); Chloride 105 mmol/L (98-107); Creatinine Clearance Estimated 137 mL/min (50-200); Estimated Glomerular Filt Rate 91 ml/min (>60); GFR (African American) 111 ML/MIN (>60); Globulin 2.5 g/dL (1.3-3.2); Glucose 91 mg/dl (74-100); Potassium 4.2 mmoL/L (3.5-5.1); Total Protein,Serum 7.1 g/dl (6.3-8.2)
[2023-12-10 11:43] LABS: Lipase 35 U/L (23-300)
[2023-12-10 11:46] LABS: Anion Gap 6.2 mEq/L (5-15); Sodium 137 mmol/L (136-145)
--- NOTE | 2023-12-10 11:50 | PC.NURSE ---
ED MD AT BEDSIDE
[2023-12-10 12:00] LABS: Amorphous Sediment,Urine 2+ /lpf; Bacteria,Urine Trace /lpf; RBC,Urine Occasional #/hpf (0-3)
--- NOTE | 2023-12-10 12:01 | ED_ITS ---
Discharge Plan Disposition Patient Disposition: Home, Self-Care Condition: Fair Prescriptions Prescriptions: New promethazine 25 mg tablet 25 mg PO Q6H PRN (Reason: sedation) Qty: 10 0RF No Action ibuprofen [ibuprofen] 600 mg tablet 600 mg PO Q6HP PRN (Reason: Mild Pain) Qty: 30 0RF dicyclomine 10 mg capsule 20 mg PO QID PRN (Reason: abdominal pain) Qty: 32 0RF ondansetron 4 mg tablet,disintegrating 4 mg PO Q8H PRN (Reason: nausea and vomiting) 4 Days Qty: 12 0RF Referrals Follow up/Referrals: Sangita Villa APRN [Primary Care Provider] - See instructions Activity Restrictions/Add. Instructions Additional Instructions/Restrictions: You were seen in the ED today due to abdominal pain, nausea and vomiting. Labs and urinalysis were reassuring. It is most likely this is a viral infection. Please follow-up with your primary care provider. Stay hydrated at home. Return to the ED if symptoms worsen or if new concerning symptoms arise. Thank you. Clinical Impressions Clinical Impression: Abdominal pain Qualifiers: Abdominal location: generalized Qualified Code(s): R10.84 - Generalized abdominal pain Nausea & vomiting Qualifiers: Vomiting type: unspecified Qualified Code(s): R11.2 - Nausea with vomiting, unspecified Instructions Patient Instructions: DI for Acute Abdominal Pain Discharge ED Provider: [facility] Adult HPI General Chief complaint: Abdominal Pain Stated complaint: Pain in abd, L side Time Seen by Provider: 12/10/23 11:49 Mode of Arrival: Ambulatory Source of Information: Spouse Limitations: No Limitations Description of Symptoms (Recalled from ER Triage Doc. by RN): stomach pain History of Present Illness HPI narrative: Patient is an otherwise healthy 18-year-old female presenting due to abdominal pain, nausea and vomiting. Patient states symptoms have been ongoing for the past 5 days. She was seen in the ED at time of symptom onset and underwent labs, urinalysis and CT scan which were overall reassuring. She was ultimately discharged however states her symptoms persisted. States she has been able to tolerate oral intake but has had intermittent episodes of vomiting. States she has been taking the Bentyl she was prescribed however it is not helping her pain. Denies any dysuria or diarrhea. Denies any fevers. Related Data Previous Rx's Medication Instructions Recorded ibuprofen 600 mg tablet 600 mg PO Q6HP PRN Mild Pain #30 06/13/22 tabs dicyclomine 10 mg capsule 20 mg PO QID PRN abdominal pain 12/06/23 #32 caps ondansetron 4 mg disintegrating 4 mg PO Q8H PRN nausea and 12/06/23 tablet vomiting 4 days #12 tabs promethazine 25 mg tablet 25 mg PO Q6H PRN sedation #10 tabs 12/10/23 Allergies Allergy/AdvReac Type Severity Reaction Status Date / Time Penicillins [PENICILLINS] Allergy Unknown Verified 06/13/22 13:42 [facility] Disclaimer: The information contained in this section may have been updated after the patient was seen, as this information can be updated by other users. Social History Smoking Status: Current every day smoker alcohol intake: never current occupational status: student Travel in the last 8 weeks: None housing: house ROS Obtained: Yes All systems reviewed & no additional complaints except as documented Constitutional Constitutional: Denies chills and Denies fever(s) Cardiovascular Cardiovascular: Denies chest pain and Denies dyspnea Respiratory Respiratory: Denies shortness of breath, Denies cough and Denies dyspnea Gastrointestinal Gastrointestingal: Reports abdominal pain, nausea and vomiting Genitourinary Female Genitourinary: Denies dysuria Physical Exam General General appearance: alert and in no apparent distress Head Head exam: atraumatic, normocephalic and normal inspection Eye Eye exam: Present normal appearance, PERRL and EOMI ENT ENT exam: Present normal exam, normal oropharynx, mucous membranes moist, TM's normal bilaterally and normal external ear exam Neck Neck exam: Present normal inspection, full ROM and trachea midline; Absent meningismus or lymphadenopathy Chest Chest inspection: Present normal inspection and symmetric chest wall rise; Absent tenderness Respiratory Respiratory exam: Present normal lung sounds bilaterally; Absent respiratory distress Cardiovascular Cardiovascular exam: Present regular rate and normal rhythm; Absent JVD Abdominal Exam Abdominal exam: Present soft and normal bowel sounds; Absent distention, tenderness or guarding Abdominal tenderness: Present LUQ and epigastrium Extremities Exam Extremities exam: Present normal inspection, full ROM and normal capillary refill; Absent calf tenderness Back Exam Back exam: Present normal inspection; Absent tenderness Neurological Exam Neurological exam: Present alert and oriented X3 Psychiatric Psychiatric exam: Present normal affect and normal mood Skin Skin exam: Present warm, dry, intact and normal color Lymphatic Lymphatic Findings: no adenopathy Medical Decision Making Medical Records Medical records reviewed: Yes I reviewed the patient's medical records. Bam Inquiry Pt receiving controlled substance: No Bam was queried for this patient: No Vital Signs: 12/10/23 11:17 12/10/23 12:24 Temperature 98.5 F Temperature Source Oral Pulse Rate 64 Pulse Rate [Left Radial] 94 H Respiratory Rate 20 Blood Pressure 93/69 L Blood Pressure [Left Arm] 119/72 Blood Pressure Mean [Left Arm] 87 02 Sat by Pulse Oximetry 98 100 Oxygen Delivery Method Room Air Room Air Lab Data Lab Results 12/10/23 11:15: WBC 7.6, RBC 4.27, Hgb 12.5, Hct 39.7, MCV 92.9, MCH 29.2, MCHC 31.4 L, RDW 13.3, Plt Count 259, MPV 9.1, Neut % (Auto) 63.0, Lymph % (Auto) 29.3, Preble % (Auto) 5.0, Eos % (Auto) 2.2, Baso % (Auto) 0.6, Neut # (Auto) 4.8, Lymph # (Auto) 2.2, Preble # (Auto) 0.4, Eos # (Auto) 0.2, Baso # (Auto) 0.0, Sodium 137, Potassium 4.2, Chloride 105, Carbon Dioxide 30, Anion Gap 6.2, BUN 10, Creatinine 0.80, Estimated Creat Clear 137, Estimated GFR 91, Est GFR ( Amer) 111, Glucose 91, Calcium 9.1, Total Bilirubin 0.3, AST 24, ALT 17, Alkaline Phosphatase 54, Total Protein 7.1, Albumin 4.6, Globulin 2.5, Albumin/Globulin Ratio 1.8, Lipase 35, Urine Color Yellow, Urine Appearance Clear, Urine pH 8.0, Ur Specific Alva 1.015, Urine Protein Negative, Urine Glucose (UA) Negative, Urine Ketones Negative, Urine Blood Negative, Urine Nitrate Negative, Urine Bilirubin Negative, Urine Urobilinogen 0.2, Ur Leukocyte Esterase Negative, Urine RBC Occasional, Urine WBC None, Ur Squamous Epith Cells 5-10, Amorphous Sediment 2+, Urine Bacteria Trace, Urine HCG, Qual Negative 12/10/23 11:15 12/10/23 11:15 Orders (Tests/Meds): ED MEDICATIONS Generic Name Dose Route Start Last Admin Trade Name Freq PRN Reason Stop Dose Admin Sodium Chloride 10 ml 12/10/23 11:22 Sodium Chloride 0.9% 10ml Flush Syringe IV 01/09/24 11:21 NEEDED PRN Maintain IV Site Sodium Chloride 8 ml 12/10/23 12:01 Sodium Chloride 0.9% 10ml Vial IV 01/09/24 12:00 NEEDED PRN dilute pepcid Discontinued Medications Generic Name Dose Route Start Last Admin Trade Name Freq PRN Reason Stop Dose Admin Acetaminophen 1,000 mg 12/10/23 11:59 12/10/23 12:17 Acetaminophen 1,000mg/100ml Vial IV 12/10/23 12:00 1,000 mg ONCE ONE Administration Famotidine 20 mg 12/10/23 12:01 12/10/23 12:17 Famotidine 20mg/2ml Vial IV 12/10/23 12:02 20 mg ONCE ONE Administration Lactated Ringer's 1,000 mls @ 999 mls/hr 12/10/23 11:59 12/10/23 12:17 Lactated Ringer's 1000 Ml Bag IV 12/10/23 12:59 999 mls/hr .Q1H1M ONE Administration Ketorolac Tromethamine 15 mg 12/10/23 11:59 12/10/23 12:17 Ketorolac 30mg/Ml Vial IV 12/10/23 12:00 15 mg ONCE ONE Administration Ondansetron HCl 4 mg 12/10/23 11:59 12/10/23 12:17 Ondansetron 4mg/2ml Vial IV 12/10/23 12:00 4 mg ONCE ONE Administration ORDERS Category Date Time Status Complete Blood Count Auto Diff Stat Lab 12/10/23 11:15 Completed Comprehensive Metabolic Panel Stat Lab 12/10/23 11:15 Completed Lipase Stat Lab 12/10/23 11:15 Completed Urinalysis and Microscopic Stat Lab 12/10/23 11:15 Completed Urine , HCG Qual. Stat Lab 12/10/23 11:15 Completed Medical Decision Narrative: In summary, patient is otherwise healthy 18-year-old female, evaluated in the emergency department today due to abdominal pain, nausea and vomiting. On arrival, patient is hemodynamically stable. On examination, patient has LUQ/epigastric abdominal pain. Differential diagnosis includes but is not limi natividad to gastritis, pancreatitis, urinary tract infection, , gastroenteritis. Workup initiated including CBC, CMP, lipase, lactate, urinalysis, . Patient was given IV Toradol, Tylenol, Zofran, IV fluids. Labs independently interpreted by me and significant for unremarkable lab wor kup. CT abdomen/pelvis from recent ED visit obtained and reviewed, demonstrating reactive lymphadenopathy consistent with viral illness. On reevaluation, patient has slight improvement in symptoms. She is ambulatory, tolerating oral intake and overall well-appearing. She is appropriate for disch arge at this time. Patient states she will follow-up with her primary care provider within the next few days. Patient counseled on home care, given strict return precautions and agreeable to plan. I considered the utility of obtaining CT, but decided against this because risks outweigh benefits given recent CT for current symptoms. I considered the utility of treatment with prescription for narcotics, but decided against this because risks outweigh benefits. Procedures Risk/Benefits of Procedure(s) Were Explained: Yes Critical Care Critical Care Time Critical Care Time: No
[2023-12-10] MEDS: ONDANSETRON 4MG/2ML VIAL 4 MG IV (12:17)
[2023-12-10] MEDS: FAMOTIDINE 20MG/2ML VIAL 20 MG IV (12:17)
[2023-12-10] MEDS: ACETAMINOPHEN 1,000MG/100ML VIAL 1000 MG IV (12:17)
[2023-12-10] MEDS: LACTATED RINGERS 1000ML 1,000 ML 999 ML IV (12:17)
[2023-12-10] MEDS: KETOROLAC 30MG/ML VIAL 15 MG IV (12:17)
[2023-12-10 12:24] VITALS: BP 93/69; PULSE 64; O2SAT 100
--- NOTE | 2023-12-10 12:25 | PC.NURSE ---
Warm blanket provided. No need voiced.
--- NOTE | 2023-12-10 12:58 | PC.NURSE ---
Pt advised she felling a little bit better
[2023-12-10 14:30] VITALS: BP 101/52; PULSE 60; RESP 16; TEMP 36.9; O2SAT 100
== END 2023-12-10 14:30 | disposition home or self-care (01) ==
PROVIDERS: Emergency Provider Student in an Organized Health Care Education/Training Program; PCP Nurse Practitioner Family
DX: R10.84 Generalized abdominal pain (principal); R11.2 Nausea with vomiting, unspecified; F17.210 Nicotine dependence, cigarettes, uncomplicated
CPT/HCPCS: 80053; 81001; 81025; 83690; 85025; 96361; 96374; 96375; 99285; J0131; J2405

== ENCOUNTER 2024-03-24 16:49 | Emergency (ER) | payer BC, OTHER, SELFPAY ==
--- NOTE | 2024-03-24 16:57 | XR_ITS ---
PROCEDURE INFORMATION: Exam: XR Right Hand Exam date and time: 03/24/2024 5:01 PM Age: 18 years old Clinical indication: Pain; Hand; Right TECHNIQUE: Imaging protocol: Radiologic exam of the right hand. Views: 1 or 2 views. COMPARISON: CR [id number] XR hand RT min 3V 11/22/2017 3:52 PM FINDINGS: Bones/joints: No acute fracture or malalignment. Soft tissues: Normal. IMPRESSION: No acute osseous findings.
--- NOTE | 2024-03-24 16:59 | XR_ITS ---
PROCEDURE INFORMATION: Exam: XR Right Wrist Exam date and time: 03/24/2024 5:01 PM Age: 18 years old Clinical indication: Right; Patient HX: Shut in car door; Pain radiating to wrist TECHNIQUE: Imaging protocol: Radiologic exam of the right wrist. Views: 1 or 2 views. COMPARISON: CR XR HAND RT 2V 03/24/2024 5:01 PM FINDINGS: Bones/joints: No acute fracture or malalignment. Soft tissues: Normal. IMPRESSION: No acute osseous findings.
[2024-03-24 17:25] VITALS: BP 117/80; PULSE 65; RESP 19; TEMP 36.9; O2SAT 100; BMI 32.4
--- NOTE | 2024-03-24 17:37 | ED_ITS ---
Discharge Plan Disposition Patient Disposition: Home, Self-Care Condition: Good Prescriptions Prescriptions: New ibuprofen 800 mg tablet 800 mg PO Q8H PRN (Reason: pain) Qty: 30 0RF Referrals Follow up/Referrals: Sangita Villa APRN [Primary Care Provider] - See instructions Activity Restrictions/Add. Instructions Additional Instructions/Restrictions: If symptoms persist or worsen follow up with PCP. Continue to wear finger splint until finger is healed. Clinical Impressions Clinical Impression: Contusion of right thumb with damage to nail, initial encounter Instructions Patient Instructions: DI for Contusion Discharge ED Provider: Juany Stearns [facility] General Stated complaint: AO 03/24/24 05:20 Right thumb injury Mode of Arrival: Ambulatory Source of Information: Patient Limitations: No Limitations Time Seen by Provider: 03/24/24 17:37 Description of Symptoms (Recalled from Triage Doc. by RN): PATIENT C/O INJURY TO RIGHT THUMB AFTER GETTING IT SLAMMED IN THE CAR DOOR TODAY. SHE STATES THE CAR DOOR WAS LOCKED AND SHE HAD TO PULL IT OUT HEENT Symptoms (Recalled from RN notes): No Resp Symptoms (Recalled from RN notes): No Skin Symptoms (Recalled from RN notes): No MS Symptoms (Recalled from RN notes): Yes Functional Status (Recalled from RN notes): WNL History of Present Illness Provider Complaint: Pt reports that while at work today the car door slammed on her right thumb and the door locked. She reports that she then had to pull her thumb out of the door. Related Data Previous Rx's Medication Instructions Recorded ibuprofen 800 mg tablet 800 mg PO Q8H PRN pain #30 tabs 03/24/24 Allergies Allergy/AdvReac Type Severity Reaction Status Date / Time Penicillins [PENICILLINS] Allergy Unknown Verified 06/13/22 13:42 Worker's Comp Is this a Worker's Comp case?: No [facility] Disclaimer: The information contained in this section may have been updated after the patient was seen, as this information can be updated by other users. Medical History (Updated 03/24/24 @ 18:34 by Juany Stearns APRN) Anxiety Urinary tract infection Migraine Surgical History (Updated 03/24/24 @ 17:51 by Sujey Arzola RN) History of tympanostomy tube placement History of tonsillectomy Social History Smoking Status: Current every day smoker alcohol intake: never current occupational status: student Travel in the last 8 weeks: None housing: house ROS Obtained: Yes All systems reviewed & no additional complaints except as documented Constitutional Constitutional: Reports system reviewed and no additional complaints, except as documented Eyes Eyes: Reports system reviewed and no additional complaints, except as documented ENT Ears, Nose, Mouth, and Throat: Reports system reviewed and no additional complaints, except as documented Cardiovascular Cardiovascular: Reports system reviewed and no additional complaints, except as documented Respiratory Respiratory: Reports system reviewed and no additional complaints, except as documented Gastrointestinal Gastrointestingal: Reports system reviewed and no additional complaints, except as documented Genitourinary Female Genitourinary: Reports system reviewed and no additional complaints, except as documented Musculoskeletal Musculoskeletal: Reports system reviewed and no additional complaints, except as documented, Reports as per HPI, Reports arthralgias, Reports joint stiffness, Reports joint swelling and Reports limited range of motion Integumentary/Breasts Skin/Breast: Reports system reviewed and no additional complaints, except as documented Neurologic Neurologic: Reports system reviewed and no additional complaints, except as documented Endocrine Endocrine: Reports system reviewed and no additional complaints, except as documented Hematologic/Lymphatic Henatologic/Lymphatic: Reports system reviewed and no additional complaints, except as documented Allergic/Immunologic Allergic/Immunologic: Reports system reviewed and no additional complaints, except as documented Physical Exam General General appearance: alert Comment: appears in pain Head Head exam: atraumatic and normocephalic Eye Eye exam: Present normal appearance ENT ENT exam: Present normal exam Neck Neck exam: Present normal inspection Chest Chest inspection: Present normal inspection and symmetric chest wall rise Respiratory Respiratory exam: Present normal lung sounds bilaterally Cardiovascular Cardiovascular exam: Present regular rate, normal rhythm and normal heart sounds Abdominal Exam Abdominal exam: Present soft and normal bowel sounds Expanded Upper Extremity Exam Right: Shoulder exam: Present normal inspection Arm exam: Present normal inspection Elbow exam: Present normal inspection Forearm/Wrist exam: Present normal inspection Hand exam: Present tenderness, swelling and ecchymosis Hand L/R back image: 2 1. tenderness and swelling noted Vascular exam: Normal capillary refill, radial pulse and ulnar pulse Back Exam Back exam: Present normal inspection Neurological Exam Neurological exam: Present alert and oriented X3 Psychiatric Psychiatric exam: Present normal affect and normal mood Skin Skin exam: Present warm, dry and intact Lymphatic Lymphatic Findings: no adenopathy Medical Decision Making Bam Inquiry Pt receiving controlled substance: No Bam was queried for this patient: No Vital Signs: 03/24/24 17:25 Temperature 98.5 F Temperature Source Oral Pulse Rate [Left Brachial] 65 Respiratory Rate 19 Blood Pressure [Left Arm] 117/80 Blood Pressure Mean [Left Arm] 92 Blood Pressure Source [Left Arm] Automatic Cuff Blood Pressure Position [Left Arm] Sitting 02 Sat by Pulse Oximetry 100 Oxygen Delivery Method Room Air Orders (Tests/Meds): ORDERS Category Date Time Status Hand XR right 2 views [XR hand RT 2V] Stat Exams 03/24/24 16:57 Taken Wrist XR right 2 views [XR wrist RT 2V] Stat Exams 03/24/24 16:59 Taken Radiology Data #1: Image(s): Hand FINDINGS: Bones/joints: No acute fracture or malalignment. Soft tissues: Normal. IMPRESSION: No acute osseous findings. 18
[2024-03-24 18:35] VITALS: BP 117/80; PULSE 65; RESP 19; TEMP 36.9; O2SAT 100
== END 2024-03-24 18:40 | disposition home or self-care (01) ==
PROVIDERS: Emergency Provider Nurse Practitioner Family; PCP Nurse Practitioner Family
DX: S60.111A Contusion of right thumb with damage to nail, initial encounter (principal); W23.0XXA Caught, crushed, jammed, or pinched between moving objects, initial encounter; F17.210 Nicotine dependence, cigarettes, uncomplicated
CPT/HCPCS: 73100; 73120; 99212; 99214; G0463

== ENCOUNTER 2024-10-10 19:50 | Emergency (ER) | payer OTHER, SELFPAY ==
[2024-10-10 19:52] VITALS: BP 118/77; PULSE 73; RESP 16; TEMP 36.6; O2SAT 98; BMI 22.4
--- NOTE | 2024-10-10 20:48 | XR_ITS ---
PROCEDURE INFORMATION: Exam: XR Left Ankle Exam date and time: 10/10/2024 8:45 PM Age: 19 years old Clinical indication: Pain; Ankle; Left; Additional info: Injury TECHNIQUE: Imaging protocol: Radiologic exam of the left ankle. Views: 1 or 2 views. COMPARISON: No relevant prior studies available. FINDINGS: Bones/joints: Normal. No acute fracture identified. Soft tissues: Normal. IMPRESSION: No acute findings.
--- NOTE | 2024-10-10 22:23 | ED_ITS ---
Discharge Plan Disposition Patient Disposition: Home, Self-Care Condition: Fair Prescriptions Prescriptions: No Action ibuprofen 800 mg tablet 800 mg PO Q8H PRN (Reason: pain) Qty: 30 0RF Referrals Follow up/Referrals: Charlene Pires MD [Primary Care Provider] - See instructions Activity Restrictions/Add. Instructions Additional Instructions/Restrictions: Call your family doctor to establish care for this visit to the emergency department and schedule follow-up within 48 hours to ensure improvement. Take Tylenol 1000 mg every 6 hours (4 times daily) and ibuprofen 400 mg every 6 hours (4 times daily) as needed with food and water to prevent GI upset and kidney damage. Clinical Impressions Clinical Impression: Acute ankle pain Print Language Print Language: Ukrainian Discharge ED Provider: Kal Disla General Adult HPI General Chief complaint: PAIN Stated complaint: AO 10/07 left ankle swelling pain Time Seen by Provider: 10/10/24 22:20 Mode of Arrival: Wheelchair Source of Information: Patient Limitations: No Limitations Description of Symptoms (Recalled from ER Triage Doc. by RN): Pt presents to ED for a L ankle injury that occurred 10/07/24. Pt states it has just gotten worse with time. Pt states pain is 6/10 at this time. Pt is A&O*4 and has no other complaints at this time. VSS History of Present Illness HPI narrative: Please note that above description of symptoms, in this electronic medical record under categorization of recalled from ER triage doctor by RN are reflective of an initial nursing assessment, however, is not reflective of my full history and physical exam that was personally taken and clarified. Consequentially, this preceding description of symptoms, which may include the patient's categorized chief complaint in the EMR, do not reflect my personal clinical impression, and the ultimate description of history of present illness and patient stated complaints should be deferred to this section of the note. Unless stated otherwise or congruent with this section of the note, additional signs, symptoms, or incongruence should be interpreted as inaccurate with my clinical impression. Related Data Previous Rx's ?Medication ?Instructions ?Recorded ibuprofen 800 mg tablet 800 mg PO Q8H PRN pain #30 tabs 03/24/24 Allergies Allergy/AdvReac Type Severity Reaction Status Date / Time Penicillins (PENICILLINS) Allergy Unknown Verified 06/13/22 13:42 [facility] Disclaimer: The information contained in this section may have been updated after the patient was seen, as this information can be updated by other users. Medical History (Updated 10/10/24 @ 22:23 by Kal Disla MD) Anxiety Urinary tract infection Migraine Surgical History (Updated 03/24/24 @ 17:51 by Sujey Arzola RN) History of tympanostomy tube placement History of tonsillectomy Social History Smoking Status: Current every day smoker alcohol intake: never current occupational status: student Travel in the last 8 weeks: None housing: house Have you lived/traveled outside [place] in past 30 days?: No Contact w/someone who lives/traveled outside US past 30 days?: No Exposure to someone with infectious disease in past 14 days?: No Do you have a fever (greater than 100.4 F or 38 C)?: No Have you tested positive for COVID-19: No Exposed to someone with COVID-19 in past 14 days?: No Do you have a sore throat?: No Do you have a cough?: No Do you have any weakness?: No Do you have any diarrhea?: No Are you experiencing any unusual bleeding?: No Do you have any muscle aches/pain?: No Do you have any abdominal pain?: No Are you experiencing loss of taste or smell?: No Other Medical History Have you received the Flu Vaccine for this season: No Have you received the Pneumonia Vaccine: No ROS Obtained: Yes All systems reviewed & no additional complaints except as documented Physical Exam General General appearance: alert Head Head exam: atraumatic and normocephalic Eye Eye exam: Present normal appearance, PERRL and EOMI Neck Neck exam: Present normal inspection, full ROM and trachea midline Respiratory Respiratory exam: Absent respiratory distress, wheezes, stridor, accessory muscle use or prolonged expiratory phase Cardiovascular Cardiovascular exam: Present other (Pulses equal symmetric in upper and lower extremities) Abdominal Exam Abdominal exam: Present soft; Absent distention, tenderness or pulsatile mass Extremities Exam Extremities exam: Absent edema Neurological Exam Neurological exam: Present alert, oriented X3 and CN II-XII intact; Absent motor sensory deficit Skin Skin exam: Present warm and dry; Absent diaphoresis or erythema Medical Decision Making Medical Records Medical records reviewed: Yes I reviewed the patient's medical records. Screening: Per USPSTF and CDC recommendations, given the prevalence of disease in our region, it is our hospital?s policy to screen for HIV and viral Hepatitis for all patients aged 18 and over and those with ongoing risk factors. Bam Inquiry Pt receiving controlled substance: No Bam was queried for this patient: No Vital Signs: 10/10/24 19:52 10/10/24 22:27 Temperature 97.9 F 97.8 F Temperature Source Temporal Artery Scan Oral Pulse Rate 77 Pulse Rate [Left] 73 Respiratory Rate 16 20 Blood Pressure 135/83 Blood Pressure [Right Arm] 118/77 Blood Pressure Mean [Right Arm] 90 Blood Pressure Source Automatic Cuff Blood Pressure Position Supine 02 Sat by Pulse Oximetry 98 Oxygen Delivery Method Room Air Room Air Orders (Tests/Meds): ORDERS Category Date Time Status Ankle XR - Left 2 Views [XR ankle LT 2V] Stat Exams 10/10/24 20:48 Completed Medical Decision Narrative: 19-year-old female with previous left ankle fracture presenting with left ankle pain. She was moving boxes around, states that she stepped back and hit the outside of her ankle over lateral malleolus on something a couple days prior to this. Able to walk, but states that it is painful. No other trauma sustained. History obtained the patient. On arrival, very well-appearing. She seems to be having symptom magnification. Minimal outward signs of abnormality. No overt swelling. X-rays obtained and on independent TUR Tatian these were negative. Patient neurovascularly intact, very well clinically appearing. Asked for crutches, these were provided. Because patient at baseline without signs or symptoms of clinical decompensation, deemed appropriate for discharge. Results were relayed to patient who voiced understanding and were agreeable to outpatient management and follow up. I discussed my clinical impression with patient and answered all questions. At this time, the evidence for any other entities in the differential is insufficient to warrant any further testing or ED observation. This was explained as well. Advisory was given that persistent or worsening symptoms require further evaluation. I confirmed the understanding of this discussion. Manager Of Photography disclaimer Much of this encounter note is an electronic sound effects manager spoken language to printed text. Electronic sound effects manager of the spoken language may permit errors. Although I have reviewed the note, some errors may still exist. Critical Care Critical Care Time Critical Care Time: No
[2024-10-10 22:27] VITALS: BP 135/83; PULSE 77; RESP 20; TEMP 36.6; O2SAT 100
== END 2024-10-10 22:40 | disposition home or self-care (01) ==
PROVIDERS: Emergency Provider Emergency Medicine; PCP Family Medicine
DX: M25.572 Pain in left ankle and joints of left foot (principal)
CPT/HCPCS: 73600; 99283

== ENCOUNTER 2025-02-18 07:51 | Outpatient (CLI) | payer OTHER, SELFPAY ==
--- NOTE | 2025-02-18 07:56 | CA_ITS ---
APPROVED REPORT EXAM: Comprehensive 2D, Doppler, and color-flow Echocardiogram Chief Nursing Executive: Gin Yao RVT Ht: 5 ft 3 in Wt: 223lbs BSA: 2.03 BP: 121/71 mmHg Indications: SOA,FATIGUE,ABN EKG,SMOKER,EDEMA 2D Dimensions LA Volume 29.40 mL LA Volume Index 14.48 mL/m2 (M/F) 16-34 M-Mode Dimensions RVDd 2.45 cm (0.9-2.6) LA Diam 2.86 cm (1.9-4.0) LVDd 4.53 cm (3.5-5.7) LVDs 3.22 cm (3.5-5.7) IVSd 0.91 cm (0.6-1.1) PWd 0.60 cm (0.6-1.1) EF (Teich) 55.70% FS 28.90% EDV (Teich) 93.90 mL TAPSE 2.51 (<1.7) ESV (Teich) 41.60 mL LV Diastology E Decel Time 225 (160-240 msec) E/A Ratio 2.3 Aortic Valve MARIN Index 1.69 cm2/m2 AoV Peak Tristan. 139.0 (50-130 cm/s) AO Peak GR. 7.80 mmHg AO Mean GR. 3.90 (<5 mmHg) AO VTI 29.8 (18-25 cm) MARIN (VTI) 3.50 (2.5-4.5 cm2) Mitral Valve MV E Max Tristan. 118.0 (40-130 cm/s) MV A Velocity 52.0 (40-130 cm/s) E/A Ratio 2.27 MV PHT 66.0 ms Pulmonary Valve PV Peak Velocity 116.0 (50-150 cm/s) Left Ventricle The left ventricle is normal size. The left ventricular systolic function is normal. The left ventricular ejection fraction is within the normal range. There is normal left ventricular wall thickness. There is normal LV segmental wall motion. The left ventricular diastolic function is normal. LVEF is 55%. Right Ventricle The right ventricle is normal size. The right ventricular systolic function is normal. Atria The left atrium size is normal. The right atrium size is normal. There is no Doppler evidence of interatrial shunt. Aortic Valve The aortic valve opens well. There is no aortic valvular stenosis. No aortic regurgitation is present. Mitral Valve The mitral valve is normal in structure. No evidence of mitral valve stenosis. Trace mitral regurgitation. Tricuspid Valve Tricuspid valve is grossly normal in structure and function. Trace tricuspid regurgitation. There is insufficient TR jet to estimate RVSP. Pulmonic Valve The pulmonary valve is normal in structure. Trace pulmonic regurgitation. Great Vessels The aortic root is normal in size. IVC is normal in size and collapses >50% with inspiration. Pericardium There is no pericardial effusion. Other Information Study Quality: Fair Conclusion Normal biventricular systolic function. No significant valvular stenosis or regurgitation. Electronically signed by : Aurelia Bledsoe MD 02/19/2025 13:11:24
[2025-02-18 09:14] VITALS: BMI 39.4
[2025-02-18 09:40] VITALS: BP 158/79; PULSE 57; RESP 17; O2SAT 99
[2025-02-18 09:55] LABS: Urine Pregnancy, HCG Qual. Negative (Negative)
--- NOTE | 2025-02-18 10:00 | CT_ITS ---
APPROVED REPORT Supervisor [employer]: CLINICAL INDICATION Chest Pain TECHNIQUE Image Acquisition: A 128 slice MDCT scanner ([employer] Splothera View) was used for data acquisition. A noncontrast coronary calcium scan was performed. A CT attenuation threshold of 130 Hounsfield units (HU) was used for the detection of calcium in contiguous voxels of 1 sq mm in area to be counted as individual lesions. Bolus tracking in the ascending aorta with a threshold of 180 HU was performed. Immediately afterwards, ECG synchronized cardiac CT was then performed from the cardiac base to apex using retrospective gating with ECG tube current modulation. A total of 85 mL of Isovue 370 mg/mL contrast medium was administered at 5 mL/sec followed by a saline flush using a biphasic injection protocol. A tube voltage of 120 KVp was used. The patient received the following medications prior to the cardiac CT. 0.8 mg of sublingual nitroglycerin The average heart rate at the time of acquisition was 66 bpm and regular. Image Reconstruction Transaxial images were reconstructed at 0.67 mm slide thickness. Data was reviewed interactively on an advanced workstation capable of 2 and 3-dimensional displays in all conventional reconstruction formats, including multiplanar reformations, maximum intensity projections, curved multiplanar reformations, and volume rendered reconstructions. When applicable, selected routine images describing the relevant coronary anatomy and pathology were saved and sent to PACS. Complications None Technical Quality Overall image quality was good. Coronary artery opacification was adequate. Total DLP (Dose-Length Product) is 1550.5 mGy-cm. The reported value represents the total of one or more individual components during the CT acquisition of this date and at this time, and as such, the same value may appear in more than one CT report depending on the interpreting/reporting physicians. COMPARISON None FINDINGS CT Coronary Calcium Scoring LMA (Left Main Artery) = 0 LAD (Left Anterior Descending) = 0 LCX (Left Coronary Circumflex) = 0 RCA (Right Coronary Artery) = 0 Total Calcium Score = 0 using the AJ-130 method. The interpretation of the calcium heart score is based on the following continuum*: 0 = no calcified plaque detected (risk of coronary artery disease is very low ??? less than 5%) 1-10 = calcium detected in extremely minimal levels (risk of coronary diseases is still low ??? less than 10%) 11-100 = mild levels of plaque detected with certainty (mild or minimal narrowing of heart arteries is likely) 101-400 = definite,at least moderate levels of plaque detected (relatively high risk of a heart attack within 3-5 years) >401-999 = extensive levels of plaque detected (high risk of heart attack, high levels of vascular disease are present, high likelihood of at least one significant coronary narrowing) *The calcium heart score quantifies the burden of coronary calcification/plaque in the coronary arteries. The calcium heart score is not able to evaluate the presence or burden of non-calcified (i.e. soft) plaque. There is no identifiable calcification in the aortic valve, mitral annulus or mitral valve, pericardium, or myocardium. Coronary CT Angiography The coronary arterial system is right dominant. Quantitative Stenosis Grading: Left Main (LM): The left main originates normally from the left sinus of Valsalva. The LM bifurcates into the left anterior descending artery and left circumflex artery. The LM is patent with no evidence of atherosclerosis. Left Anterior Descending (LAD) and Diagonal Branches: The LAD gives off 2 diagonal branch(es). The LAD and its branches are patent with no evidence of atherosclerosis. There is no evidence of LAD-myocardial bridge. Left Circumflex (LCX) and Obtuse Marginals (OM): The LCX gives off 1 Obtuse Marginal (OM) branch(es). The LCX and its branches are patent with no evidence of atherosclerosis. Right Coronary Artery (RCA): The RCA originates normally from the right sinus of Valsalva. The RCA gives off a posterior descending artery (PDA) and posterolateral (PL) branches. The RCA and its branches are patent with no evidence of atherosclerosis. Non-Coronary Cardiac Findings: Analysis of the left ventricular (LV) structure and function was performed after 3-D reconstruction of the LV from axial images, with user-corrected automatic contouring for assessment of LV volumes and user-defined reconstruction from oblique planes for measurement of 3-D cardiac structure and function. -The left ventricle systolic function is normal. -There is no left atrial appendage filling defect. Two right pulmonary veins and two left pulmonary veins drain normally into the left atrium. -No pericardial thickening or calcification. -Central and branch pulmonary arteries in the [id number] are unremarkable. -Thoracic aorta within the visualized thoracic aortic-branches in the [id number] is unremarkable. Extracardiac Structures No significant extra-cardiac findings. Note, however, that this study is focused on the cardiac findings. IMPRESSION - Absence of coronary calcification with an Agatston score = 0 using the AJ-130 method. -No evidence of significant flow-limiting atherosclerosis of the coronary arteries. -No evidence of coronary anomalies or myocardial bridges. -CAD-RADS 0. Management recommendations per ACC/AHA guidelines*, as clinically appropriate. *Recommendations: CAD RADS 0: Reassurance. Consider non-atherosclerotic causes of chest pain. CAD RADS 1: Consider non-atherosclerotic causes of chest pain. Consider preventive therapy and risk factor modification. CAD RADS 2: Consider non-atherosclerotic causes of chest pain. Consider preventive therapy and risk factor modification, particularly for patients with nonobstructive plaque in multiple segments. CAD RADS 3: Consider further functional testing. Consider symptom-guided anti-ischemic and preventive pharmacotherapy as well as risk factor modification per published guideline statements. CAD RADS 4A: Consider further functional testing or invasive coronary angiography with revascularization per published guideline statements. Consider symptom-guided anti-ischemic and preventive pharmacotherapy as well as risk factor modification per published guideline statements. CAD RADS 4B: Invasive coronary angiography recommended with revascularization per published guideline statements. Consider symptom-guided anti-ischemic and preventive pharmacotherapy as well as risk factor modification per published guideline statements. CAD RADS 5: Consider invasive angiography and/or viability assessment with revascularization per published guideline statements. Consider symptom-guided anti-ischemic and preventive pharmacotherapy as well as risk factor modification per published guideline statements. CRITICAL RESULT None COMMUNICATION Per this written report The coronary and cardiac findings of this CCTA were reviewed, reported, and signed by Harley Bledsoe MD (Farmworker [employer]) Conclusion Electronically signed by : Aurelia Bledsoe MD 02/19/2025 13:26:13
[2025-02-18 10:42] LABS: Anion Gap 4.2 mEq/L (5-15); Blood Urea Nitrogen 13 mg/dl (7-17); Calcium 9.2 mg/dl (8.4-10.2); Carbon Dioxide 27 mmol/L (22.0-30.0); Chloride 107 mmol/L (98-107); Creatinine Clearance Estimated 203 mL/min (50-200); Estimated Glomerular Filt Rate 106 ml/min (>60); GFR (African American) 128 ML/MIN (>60); Glucose 97 mg/dl (74-100); Potassium 4.2 mmoL/L (3.5-5.1); Sodium 134 mmol/L (136-145)
[2025-02-18 11:20] VITALS: BP 118/75; PULSE 63; RESP 17; O2SAT 99
[2025-02-18 11:21] VITALS: BP 120/72; PULSE 64; RESP 17; O2SAT 99
[2025-02-18] MEDS: IOPAMIDOL-370 (76%);100ML BOTTLE 85 ML IV (11:25)
[2025-02-18] MEDS: SODIUM CHLORIDE 0.9% 10ML SYR (RAD ONLY) 10 ML IV (11:25)
[2025-02-18] MEDS: 0.9 % SODIUM CHLORIDE 50 ML VIAL IV (11:25)
[2025-02-18 11:30] VITALS: BP 114/58; PULSE 95; RESP 17; O2SAT 99
[2025-02-18 11:32] VITALS: BP 120/73; PULSE 72; RESP 17; O2SAT 99
[2025-02-18] MEDS: NITROGLYCERIN 0.4MG SL TABLET SL (11:49)
== END 2025-02-18 11:35 | disposition home or self-care (01) ==
LOC: RT 07:52 → RAD 09:14
PROVIDERS: PCP Family Medicine; Visit Provider Physician Assistant
DX: R94.31 Abnormal electrocardiogram [ECG] [EKG] (principal); R06.02 Shortness of breath; R42 Dizziness and giddiness; R53.83 Other fatigue; Z82.79 Family history of other congenital malformations, deformations and chromosomal abnormalities
CPT/HCPCS: 75574; 80048; 81025; 93306; Q9967

== ENCOUNTER 2025-03-04 09:47 | Outpatient (CLI) | payer OTHER, SELFPAY ==
--- NOTE | 2025-03-04 09:51 | XR_ITS ---
FINAL REPORT CLINICAL HISTORY: B/L foot pain COMPARISON: None FINDINGS: RIGHT FOOT Three views demonstrate no acute fracture or dislocation. The joint spaces appear normal. No acute soft tissue abnormality is seen. IMPRESSION: No acute bony abnormality. Reviewed, Interpreted and Dictated by Solo Sun MD Transcribed by Yolande Colmenares Authenticated and [facility]
--- NOTE | 2025-03-04 09:51 | XR_ITS ---
FINAL REPORT CLINICAL HISTORY: B/L foot pain COMPARISON: None FINDINGS: LEFT FOOT Three views demonstrate no acute fracture or dislocation. The joint spaces appear normal. No acute soft tissue abnormality is seen. IMPRESSION: No acute bony abnormality. Reviewed, Interpreted and Dictated by Solo Sun MD Transcribed by Yolande Colmenares Authenticated and . [facility]
== END 2025-03-04 23:59 | disposition home or self-care (01) ==
LOC: RAD 09:49
PROVIDERS: PCP Nurse Practitioner; Visit Provider Nurse Practitioner
DX: M79.671 Pain in right foot (principal); M79.672 Pain in left foot
CPT/HCPCS: 73630

== ENCOUNTER 2025-03-18 09:59 | Outpatient (CLI) | payer OTHER, SELFPAY ==
--- OUTSIDE RECORDS SUMMARY | 2025-03-18 10:02 | XMS_ITS | Clinical Summary ---
Author Organization [facility] Address [address] [place] [id number] Phone [email or web address] Providers Care Riveter Hand Name Role Phone Unavailable Primary Care Provider Unavailabl e Allergies Active Allergy Reactions Criticality Noted Date Comments Penicillins Anaphylaxis High 04/18/2023 Medications metoclopramide (REGLAN) 10 MG tablet 03/10/2024 Active naproxen (NAPROSYN) 500 MG tablet 03/10/2024 Activ e ondansetron ODT (ZOFRAN-ODT) 4 MG dispersible tablet 12/06/2023 Active Active Problems No known active problems Social History Tobacco Use Types Packs/Day Years Used Date Smoking Tobacco: Some Days Cigarettes E-Cigarettes Smokeless Tobacco: Never Tobacco Cessation:Ready to Q uit: Not Asked; Counseling Given: Not Answered Depression Answer Date Recorded PHQ Total Score 0 03/31/2024 Comments No Sex and Gender Information Value Date Recorded Sex Assigned at Not on file Legal Sex Female 3:09 PM [employer] Gender Identity Not on file Sexual Orientation Not on file Last Filed Vital Signs Vital Sign Reading Time Taken Comments Blood Pressure 111/68 03/31/2024 5:56 AM EDT Pulse 78 03/31/2024 5:56 AM EDT Temperature 36.9 C (98.4 F) 03/31/2024 5:56 AM EDT Respiratory Rate 16 03/10/2024 8:08 AM EDT Oxygen Saturation 99% 03/31/2024 5:56 AM EDT Inhaled Oxygen Concentration - - Weight 79.4 kg (175 lb) 03/10/2024 8:08 AM EDT Height 160 cm (5' 3 ) 03/10/2024 8:08 AM EDT Body Mass Index 31 03/10/2024 8:08 AM EDT Plan of Treatment Health Maintenance Due Date Last Done Comments Dental Cleaning/Exam 2003 HPV Immunization (2 - 3-dose series) 12/25/2018 11/27/2018 Cervical Cancer Screening 2019 Men B Immunization (1 of 2 - Standard) 2019 Covid-19 Immunization ( - season) 2024 Tetanus Diphtheria and Pertussis Immunization (7 - Td or Tdap) 06/02/2025 06/02/2015, 06/20/2007, 09/05/2004, Additional history exists Influenza Immunization (Season Ended) 2025 HIB Immunization Completed 06/02/2004, 06/2004, 2003 Hepatitis B Immunization Completed 004, 2003, 2003 Pneumococcal: Ped (0 to 5 Yrs) and At-Risk Member (6 to 64 Yrs) Aged Out 09/05/2004, 06/02/2004, 2003, Additional history exists No longer eligible based on patient's age to complete this topic Polio Immunization Completed 06/20/2007, 0 06/02/2004, 01/18/2004, Additional history exists Varicella Immunization Completed 03/14/2012, 2003 Meningococcal Immunization Aged Out 06/02/2015 N o longer eligible based on patient's age to complete this topic Hepatitis A Immunization Completed 11/27/2018, 05/2018 Insurance OPT OUT NO COPAY NB
--- NOTE | 2025-03-18 10:15 | US_ITS ---
FINAL REPORT CLINICAL HISTORY: DECREASED PEDAL PULSES,CLAUDICATION,REST PAIN FINDINGS: Ankle-brachial indices was obtained. The right MARIA EUGENIA is 1.1. The left MARIA EUGENIA is 1.1. IMPRESSION: ABIs are within normal limits bilaterally. Reviewed, Interpreted and Dictated by Solo Sun MD Transcribed by Faye Bauman Authenticated and [facility]
== END 2025-03-18 23:59 | disposition home or self-care (01) ==
LOC: RT 10:00
PROVIDERS: PCP Nurse Practitioner; Visit Provider Nurse Practitioner
DX: R09.89 Other specified symptoms and signs involving the circulatory and respiratory systems (principal); I99.8 Other disorder of circulatory system; R20.9 Unspecified disturbances of skin sensation
CPT/HCPCS: 93923

== ENCOUNTER 2025-06-24 10:43 | Outpatient (RCR) | payer OTHER, SELFPAY ==
--- NOTE | 2025-06-24 11:57 | HMH.PTOPEV ---
PT Evaluation Rehab PT Outpatient Evaluation Start: 06/24/25 10:50 Freq: Status: Active Protocol: Document 06/24/25 10:50 JOSEBRUNA (Rec: 06/24/25 11:57 RACHELL [id number]) E-signed By Ottoniel Phan, PT Outpatient Therapy Subjective History Subjective History Pt is a 20 yof who is referred to [facility] outpatient PT with a referring diagnosis of bilateral plantar fasciitis. Pt reports that she has had pains in her feet for as long as she can remember, however, the past 7 months the pain has significantly worsened. Pt reports an intense pain into the bottoms of both of her heels whenever she walks. She reports that it also will hurt at the base of her toes as well, but it is not as intense. Pt reports that she is being followed by Podiatry for this issue as well. She reports that she has been wearing heel lift inserts, trialed a steroid medication, uses a night splint, and has been icing fairly regularly. Pt reports that the only thing that seems to help is the night splint. She reports that it feels better on the mornings after she uses it. Pt reports that her job requires lots of walking and lifting. Pt reports immense difficulty with walking, standing for longer periods, squatting and stairs. PMH: Hypothyroidism Occupation: [employer] New diagnosis of No cancer in past 12 months? Chief Complaint Pain,Stiff Symptom Type Ache,Sharp,Stabbing Symptoms Relieved By Ice,OTC Meds,Prescription Meds Symptoms Aggravated Standing,Physical Activity,Walking,Lifting By Prior Functional None Limitations Current Functional Lifting,Housework,Standing,Squatting,Walking,Stairs, Limitations Balance Symptom Description Constant but Variable,Activity Dependent Level of pain today 7 (0-10) Pain scale - at its 4 best (0-10) Pain scale - at its 10 worst (0-10) Ankle/Foot Eval Gait Observation General Gait Pattern Antalgic Gait Observation Palpation Tenderness bilateral Ankle/Foot Palpation Tenderness Findings Ankle/Foot Palpation TTP 4/4 to calcaneal tubercle Overall Comment ROM Ankle/Foot -3 Dorsiflexion w/Knee Extended Active Range Motion ( degrees) Ankle/Foot 0 Dorsiflexion w/Knee Extended Passive Range (degrees) Great Toe ROM Reason Within Functional Limits Not Measured MMT Ankle Dorsiflexion 3 Fair Strength Grade Ankle Plantarflexion 2 Poor Strength Grade Foot Eversion 3 Fair Strength Grade Special Tests Ankle Anterior Negative Left,Negative Right Drawer Test Lower Extremity Functional Index Activities Today, do you or would you have any difficulty at all with: a.Any of your usual Quite a bit of difficulty work, housework or school activities b. Your usual Moderate difficulty hobbies, recreational or sporting activities c. Getting into or Moderate difficulty out of the bath d. Walking between A little bit of difficulty rooms e. Putting on your Quite a bit of difficulty shoes or socks f. Squatting Moderate difficulty g. Lifting an object A little bit of difficulty , like a bag of groceries from the floor h. Performing light A little bit of difficulty activities around your home i. Performing heavy Quite a bit of difficulty activities around your home j. Getting into or Moderate difficulty out of a car k. Walking 2 blocks Quite a bit of difficulty l. Walking a mile Quite a bit of difficulty m. Going up or down Quite a bit of difficulty 10 stairs (about 1 flight of stairs) n. Standing for 1 Quite a bit of difficulty hour o. Sitting for 1 A little bit of difficulty hour p. Running on even Moderate difficulty ground q. Running on uneven Quite a bit of difficulty ground r. Making sharp Quite a bit of difficulty turns while running fast s. Hopping Moderate difficulty t. Rolling over in A little bit of difficulty bed LEFI Score Lower Extremity 36 Functional Index Score Miscellaneous Dx PT Eval Objective Objective + windlass Test b/l Outpatient Therapy Assessment Impairments Problems/ Palpation Tenderness,Impaired Range of Motion,Impaired Impairmments Strength,Impaired Gait Pattern,Impaired Walking, Impaired Standing,Impaired Lifting,Impaired Household Care,Impaired Stair Climbing,Impaired Balance, Subjective C/O Pain,Impaired Self Care/Self Management Prognosis Rehab Potential Good Comment w HEP compliance Clinical Impression Consistent with Yes Diagnosis Consistent with b/l plantar fasciitis PT Patient Goals PT Patient Goals PT Short Term In 4 weeks: Patient Goals 1. Patient will report a 48 hour average pain of 5/10 on the numeric pain rating scale to demonstrate improvement in quality of life and increased functional capacity. 2. Patient will improve strength of the ankle complex to 3+/5 globally to improve gait mechanics, improve static/dynamic balance and to decrease fall risk. 3. Patient will improve LEFS score to 45/80 to demonstrate improved functional mobility and increased independence with ADLs. 4. Patient will improve ankle DF with knee straight to 5 degrees, in order to demonstrate improved gait mechanics, stair climbing and other functional movement patterns. 5. Pt will demonstrate HEP compliance by completing prescribed HEP 4-5x/week. PT Skilled Nursing Patient In 8 weeks: Goals 1. Patient will report a 48 hour average pain of 2-3/10 on the numeric pain rating scale to demonstrate improvement in quality of life and increased functional capacity. 2. Patient will improve strength of the ankle complex to 4+/5 globally to improve gait mechanics, improve static/dynamic balance and to decrease fall risk. 3. Patient will improved LEFS score to 54/80 to demonstrate improved functional mobility and increased independence with ADLs. 4. Patient will improve ankle df with knee straight to 12 degrees in order to demonstrate range of motion needed for normal gait, stair climbing and other functional movements. 5. Pt will be able to stand for 60 minutes at a time with no increase in pain, in order to demonstrate improved symptoms and ability to do her normal daily job duties. 6. Patient will demonstrate improved balance by maintaining tandem stance for 30s with each foot placed forward, on an even surface, without upper extremity support to demonstrate a reduced fall risk. 7. Patient will be able to climb a flight of stairs with reciprocal stepping pattern, no handrail and no increase in pain in order to demonstrate independence with in-home and community mobility. Outpatient Therapy Plan of Care Treatment Plan May Include Therapeutic Exercise Yes Including Home Exercise Program Manual Therapy Yes Techniques Neuromuscular Re- Yes education Therapeutic Yes Activities to Return to Previous Functional/Work Level Gait Training Yes ADL/Self Care Yes Education Dry Needling Yes Thermal Modalities Yes Electrical Yes Stimulation Ultrasound/ Yes Phonophoresis Iontophoresis Yes Massage Yes Manual Lymphatic Yes Drainage Eval/Re-Eval Yes Frequency Times per week 2 Duration Number of Weeks 8 Addendums This patient is a No candidate for social or vocational rehab ? Patient/Guardian Yes verbally acknowledges understanding of treatment program and consents to further treatment? Patient/Guardian Yes verbally acknowledges understanding of diagnosis, prognosis and goals for treatment? Eval Complexity PT Charges 80169 - Moderate Complexity Shoulder/Elbow Eval Shoulder Objective Measurements Elbow Objective Measurements PHYSICIAN CERTIFICATION: I certify the specified therapy services for Odalis Gore Alcorn are required, authorized, and reviewed every 30 days.
== END 2025-06-24 23:59 | disposition home or self-care (01) ==
LOC: PT 10:43
PROVIDERS: Visit Provider Nurse Practitioner
DX: M72.2 Plantar fascial fibromatosis (principal)
CPT/HCPCS: 97162; 97530

== ENCOUNTER 2025-08-26 11:09 | Outpatient (CLI) | payer OTHER, SELFPAY ==
--- OUTSIDE RECORDS SUMMARY | 2025-08-26 12:30 | XMS_ITS | Clinical Summary ---
Author Organization [facility] Address [address] [place] [id number] Phone [email or web address] 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 Gender Identity Not on file Sexual Orientation [...] Health Maintenance Due Date Last Done Comments Cervical Cancer Screening Combo 2003 Dental Cleaning/Exam 2003 HPV only / HPV + Pap 2003 Pap only testing 2003 HPV Immunization (2 - 3-dose series) 12/25/2018 11/27/2018 Men B Immunization (1 of 2 - Standard) 2019 Tetanus Diphtheria and Pertussis Immunization (7 - Td or Tdap) 06/02/2025 06/02/2015, 06/20/2007, 09/05/2004, Additional history exists Covid-19 Immunization ( season) 2025 Influenza Immunization (#1) 2025 HIB Immunization Completed 06/02/2004, 06/2004, 2003 Hepatitis B Immunization Completed 004, 2003, 2003 Pneumococcal Immunization Aged Out 2003, 06/02/2004, 2003, Additional history exists No longer eligible based on patient's age to complete this topic Polio Immunization Completed 06/20/2007, 0 06/02/2004, 01/18/2004, Additional history exists Varicella Immunization Completed 03/14/2012, 2003 Meningococcal Immunization Aged Out 06/02/2015 N o longer eligible based on patient's age to complete this topic Hepatitis A Immunization Completed 11/27/2018, 0805/2018 Insurance OPT OUT NO COPAY NB
== END 2025-08-26 23:59 | disposition home or self-care (01) ==
LOC: RT 11:10
PROVIDERS: PCP Nurse Practitioner; Visit Provider Physician Assistant
DX: I49.3 Ventricular premature depolarization (principal)
CPT/HCPCS: 93270

== ENCOUNTER 2025-09-11 14:55 | Outpatient (CLI) | payer OTHER, SELFPAY ==
--- NOTE | 2025-09-11 14:58 | XR_ITS ---
FINAL REPORT CLINICAL HISTORY: NECK PAIN COMPARISON: None FINDINGS: AP, lateral, oblique and odontoid views of the cervical spine were obtained. There is no prior exam for comparison. There is no acute fracture or malalignment. Vertebral body height is preserved. The precervical soft tissues are normal. IMPRESSION: No osseous abnormality identified. Reviewed, Interpreted and Dictated by Zully Farr MD Transcribed by May Mota Authenticated and [facility]
--- NOTE | 2025-09-11 14:58 | XR_ITS ---
FINAL REPORT CLINICAL HISTORY: LT SHOULDER PAIN COMPARISON: None FINDINGS: 3 views of the left shoulder were obtained. There is no fracture or dislocation. The joint space is preserved. Soft tissues are unremarkable. IMPRESSION: No acute osseous abnormality of the left shoulder. Reviewed, Interpreted and Dictated by Zully Farr MD Transcribed by May Mota Authenticated and . [facility]
== END 2025-09-11 23:59 | disposition home or self-care (01) ==
LOC: RAD 14:55
PROVIDERS: PCP Nurse Practitioner; Visit Provider Nurse Practitioner
DX: M25.512 Pain in left shoulder (principal); M54.2 Cervicalgia
CPT/HCPCS: 72050; 73030